=== PATIENT | male | born 1940 | race Caucasian/White ===

== ENCOUNTER → 2019-08-14 | Outpatient (CLI) | payer MEDICARE ==
[~2019-08-14] MED LIST: ASPIRIN81 M1; CALCIUM600 M2; FLONASE ALLERG9.9 ML NAS; GARLIC1 EACH PO; MULTIVITAMIN1 CTB; OMEGA-3 FISH1200 M1; PREDNISONE10 MG PO; ROBITUSSIN DM 105 ML PO; ROBITUSSIN-AC 160 ML PO; VIBRAMYCIN100 MG PO; ZITHROMAX250 MG PO
[2019-08-14 10:23] LABS: BASO % 0.3 % (0.0-1.0); EOS # 0.3 10*3/uL (0.0-0.4); EOS % 4.3 % (1.0-4.0); HEMATOCRIT 44.9 % (42.0-52.0); HEMOGLOBIN 14.8 g/dl (14.0-18.0); LYMPH # 2.1 10*3/uL (1.3-4.4); LYMPH % 31.4 % (27.0-41.0); MEAN CELL VOLUME 90.9 fl (80.0-94.0); MEAN PLATELET VOLUME 10.6 fl (9.6-12.3); MONO # 0.6 10*3/uL (0.1-1.0); MONO % 9.4 % (3.0-9.0); NEUT # 3.7 10*3/uL (2.3-7.9); NEUT % 54.5 % (47.0-73.0); PLATELET COUNT AUTOMATED 173 10*3/uL (130-400); RED BLOOD COUNT 4.94 10*6/uL (4.50-5.90); RED CELL DISTRI WIDTH 13.5 % (0-14.5); WHITE BLOOD COUNT 6.7 10*3/uL (4.8-10.8)
[2019-08-14 11:00] LABS: ALBUMIN 3.7 gm/dl (3.1-4.5); ALKALINE PHOSPHATASE 69 U/L (45-117); BILIRUBIN, DIRECT 0.1 mg/dL (0.0-0.2); BUN 31 mg/dl (7-24); CHLORIDE 107 mmol/L (98-107); CHOLESTEROL 207 mg/dL (<200); CREATININE 1.35 mg/dL (0.70-1.30); POTASSIUM 4.2 mmol/L (3.5-5.1); SGOT/AST 19 IU/L (3-35); SGPT/ALT 19 U/L (12-78); SODIUM 141 mmol/L (136-145); THYROXINE (T4) TOTAL 11.4 ug/dl (4.5-12.1); TRIGLYCERIDES 67 mg/dl (<150); VLDL CHOLESTEROL 13 mg/dL (6-40)
[2019-08-14 11:06] LABS: HDL CHOLESTEROL 60 mg/dl (40-60); LDL CHOLESTEROL 134 mg/dL (9-159)
== END | disposition home or self-care (01) ==
LOC: LAB 09:53
PROVIDERS: Family Medicine
DX: Z12.5 Encounter for screening for malignant neoplasm of prostate (principal); R35.1 Nocturia; I95.9 Hypotension, unspecified; I10 Essential (primary) hypertension

== ENCOUNTER → 2019-08-15 | Outpatient (CLI) | payer MEDICARE | END | disposition home or self-care (01) | LOC: CARD 13:40 | DX: I35.1 Nonrheumatic aortic (valve) insufficiency (principal); I51.7 Cardiomegaly ==

== ENCOUNTER → 2020-03-26 | Outpatient (CLI) | payer MEDICARE ==
[2020-03-26 15:25] LABS: CREATININE 1.46 mg/dL (0.70-1.30); POTASSIUM 4.8 mmol/L (3.5-5.1)
== END | disposition home or self-care (01) ==
LOC: LAB 13:55
PROVIDERS: Family Medicine
DX: R35.0 Frequency of micturition (principal)

== ENCOUNTER → 2020-06-06 | Outpatient (CLI) | payer MEDICARE ==
[2020-06-06 13:19] LABS: BASO % 0.4 % (0.0-1.0); EOS # 0.3 10*3/uL (0.0-0.4); EOS % 3.9 % (1.0-4.0); HEMATOCRIT 44.1 % (42.0-52.0); LYMPH # 1.7 10*3/uL (1.3-4.4); LYMPH % 23.9 % (27.0-41.0); MEAN CELL VOLUME 89.6 fl (80.0-94.0); MEAN CORPUSCULAR HGB 28.5 pg (27.0-31.0); MEAN CORPUSCULAR HGB CONC 31.7 g/dl (33.0-37.0); MEAN PLATELET VOLUME 10.1 fl (9.6-12.3); MONO # 0.8 10*3/uL (0.1-1.0); MONO % 10.5 % (3.0-9.0); NEUT # 4.3 10*3/uL (2.3-7.9); PLATELET COUNT AUTOMATED 200 10*3/uL (130-400); RED BLOOD COUNT 4.92 10*6/uL (4.50-5.90); RED CELL DISTRI WIDTH 13.2 % (0-14.5); WHITE BLOOD COUNT 7.1 10*3/uL (4.8-10.8)
[2020-06-06 13:52] LABS: ALBUMIN 3.4 gm/dl (3.1-4.5); BILIRUBIN, DIRECT 0.2 mg/dL (0.0-0.2); CREATININE 1.55 mg/dL (0.70-1.30); POTASSIUM 4.3 mmol/L (3.5-5.1); THYROXINE (T4) TOTAL 11.1 ug/dl (4.5-12.1); TOTAL PROTEIN 7.4 gm/dL (6.4-8.2)
[2020-06-06 14:00] LABS: THYROID STIM HORMONE (HS) 2.72 uIU/ml (0.358-4.75)
== END | disposition home or self-care (01) ==
LOC: LAB 12:47
PROVIDERS: Family Medicine
DX: N39.9 Disorder of urinary system, unspecified (principal); R53.83 Other fatigue

== ENCOUNTER 2020-07-14 22:42 | Inpatient (IN) | payer MEDICARE ==
[~2020-07-14] VITALS: Ht 180.3 cm; Wt 89.5 kg
[~2020-07-14 22:42] MED LIST changes: +VALTREX1000 MG PO
[2020-07-14 22:46] VITALS: BP 149/71
[2020-07-14] MEDS ORDERED: DICLOFENAC SOD75 MG PO (22:47)
[2020-07-14 22:53] VITALS: BP 134/80
[2020-07-14 23:53] LABS: BASO % 0.4 % (0.0-1.0); EOS # 0.1 10*3/uL (0.0-0.4); EOS % 1.6 % (1.0-4.0); HEMATOCRIT 38.1 % (42.0-52.0); LYMPH # 0.7 10*3/uL (1.3-4.4); LYMPH % 14.4 % (27.0-41.0); MEAN CELL VOLUME 87.4 fl (80.0-94.0); MEAN CORPUSCULAR HGB 28.2 pg (27.0-31.0); MEAN CORPUSCULAR HGB CONC 32.3 g/dl (33.0-37.0); MEAN PLATELET VOLUME 9.5 fl (9.6-12.3); MONO # 0.5 10*3/uL (0.1-1.0); MONO % 9.9 % (3.0-9.0); NEUT # 3.8 10*3/uL (2.3-7.9); NEUT % 73.3 % (47.0-73.0); PLATELET COUNT AUTOMATED 159 10*3/uL (130-400); RED BLOOD COUNT 4.36 10*6/uL (4.50-5.90); RED CELL DISTRI WIDTH 13.7 % (0-14.5); WHITE BLOOD COUNT 5.1 10*3/uL (4.8-10.8)
[2020-07-14 23:58] VITALS: BP 147/80
[2020-07-15 00:02] LABS: BILIRUBIN NEGATIVE; BLOOD 2+ (NEGATIVE); CLARITY CLEAR (CLEAR); COLOR YELLOW (YELLOW); GLUCOSE NEGATIVE; KETONE NEGATIVE; LEUKO ESTERASE NEGATIVE (NEGATIVE); NITRITE NEGATIVE (NEGATIVE); SPECIFIC GRAVITY 1.025 (1.005-1.030); UROBILINOGEN 0.2 E.U./dl (0.2-1.0)
[2020-07-15 00:04] LABS: BACTERIA TRACE; FINE GRANULAR CAST 0-2; WBC 0-2 wbc/hpf (0-5)
[2020-07-15 00:08] LABS: ALBUMIN 3.1 gm/dl (3.1-4.5); CREATININE 1.55 mg/dL (0.70-1.30); POTASSIUM 4.3 mmol/L (3.5-5.1); TOTAL PROTEIN 7.3 gm/dL (6.4-8.2)
--- NOTE | 2020-07-15 01:56 | NUR ---
PASS CODE FOR SYLVIE SUGGS
[2020-07-15 03:00] VITALS: BP 151/69
--- NOTE | 2020-07-15 03:00 | NUR ---
Time: 299 A 79 year old MALE admitted to under services of GINA SALAS DO. Pt. arrived via bed from ER. Chief complaint: FALL AT HOME. JAZZY BETANCOURT
--- NOTE | 2020-07-15 03:20 | NUR ---
PT UNSURE OF HOME MEDICATIONS. WILL PASS ON TO AM SHIFT RN THAT THEY WILL NEED TO CALL [facility] FOR MOST RECENT MED LIST.
--- NOTE | 2020-07-15 03:30 | NUR ---
PT REFUSING MEASUREMENTS/PHOTOGRAPHS OF WOUNDS. HAS AN ABRASION TO HIS RIGHT SCALP AND A RASH (SHINGLES) TO THE LEFT ABD/RIBCAGE. THEY ARE SCABBED OVER, NO DRAINAGE NOTED. PT STATES THEY "AREN'T THAT BAD" AND THERE "IS NO NEED TO DO THAT" IN REGARDS TO THE WOUNDS.
--- NOTE | 2020-07-15 06:08 | NUR ---
SPOKE WITH PATIENTS DAUGHTER VIDHYA, STATES HER DAD HAS NOT BEEN HIMSELF THE PAST COUPLE OF MONTHS AND SEEMS TO BE "GOING DOWN HILL". SHE SAID HE APPEARS DAZED A LOT OF THE TIME AND SHES UNSURE OF WHAT IS GOING ON. PT HAS A COUGH, HAD A FEVER IN ER AND THE DAUGHTER STATES HE WAS C/O NAUSEA YESTERDAY. I ASKED IF HE HAS BEEN AROUND ANY POSITIVE COVID CASES AND SHE SAID "SHE DOESN'T BELIEVE SO". SHE ALSO MENTIONED AN INCREASE IN URINATION WHICH IS UNUSUAL FOR HIM. URINE IS A LITTLE MALODOROUS BUT DID NOT REFLEX TO CULTURE IN ER.
--- NOTE | 2020-07-15 07:00 | NUR ---
ARRIVED 0N SHIFT, REPORT RECEIVED FROM OFFGOING NURSE, ASSUMED CARE OF PATIENT.
--- NOTE | 2020-07-15 07:02 | NUR ---
DAUGHTER VIDHYA CALLED IN TO TELL ME AFTER TALKING TO HER NROTHER, SHE THINKS HER DAD MAY HAVE HAD A HEAT STROKE. SHE STATES HE "WAS OUTSIDE ALL DAY YESTERAY, WITH LITTLE TO DRINK, AND BECAME CONFUSED AND UNLIKE HIMSELF WHEN HE CAME INSIDE". WILL RELAY TO AM NURSE.
--- NOTE | 2020-07-15 07:30 | NUR ---
INTRODUCED SELF TO PATIENT, BED IN LOW POSITION, WHEEL LOCKS ENGAGED, SIDE RAILS UP X 2 FOR TURNING AND REPOSITIONING, BED ALARM ON, CALL LIGHT WITHIN REACH. NO NEEDS VOICED AT THIS TIME, WHITE BOARD UPDATED.
[2020-07-15 08:00] VITALS: BP 147/73
--- NOTE | 2020-07-15 08:19 | NUR ---
Shift chart check completed.
--- NOTE | 2020-07-15 08:32 | NUR ---
PHYSICAL THERAPY Screen and PT orders received, will follow. Thank you. Gama Pitts SPT Fatou Mcknight PT
--- NOTE | 2020-07-15 09:05 | NUR ---
OT NOTE Occupational therapy order received and chart reviewed. Attempted to see patient this AM however she was eating breakfast and declined an OT evaluation at this time. Will check back later this AM for completion of an OT evaluation. Thank you. Sarah Nagy, OTR/L
--- NOTE | 2020-07-15 09:09 | NUR ---
OT NOTE Nursing screen and occupational therapy order received. Will follow up with patient for completion of an OT evaluation. Thank you. Sarah Nagy, OTR/L
[2020-07-15] MEDS ORDERED: PRESERVISION A1 EAC1 PO (10:12)
[2020-07-15 12:00] VITALS: BP 116/52
--- NOTE | 2020-07-15 13:30 | NUR ---
Occupational Therapy evaluation completed on four with full evaluation to follow. Recommend occupational therapy per plan of care and SNF upon discharge. Thank you for this referral. Sarah Nagy OTR/L
--- NOTE | 2020-07-15 14:26 | NUR ---
PHYSICAL THERAPY Physical Therapy evaluation completed on 4th floor with full evaluation to follow. Recommend physical therapy per plan of care and SNF pending pt progress upon discharge. Thank you for this referral. Gama Pitts SPT Fatou Mcknight PT
--- NOTE | 2020-07-15 15:21 | NUR ---
PATIENT C/O LEFT HIP PAIN RATES 7/10 ACHING, MEDICATED WITH NORCO ORDERED PRN FOR PAIN.WHITE BOARD UPDATED.
[2020-07-15 16:00] VITALS: BP 150/67
[2020-07-15 20:00] VITALS: BP 129/69
--- NOTE | 2020-07-15 23:52 | NUR ---
24 HOUR CHART CHECK COMPLETE.
[2020-07-16] VITALS: BP 163/83
--- NOTE | 2020-07-16 01:11 | NUR ---
NORCO ADMINISTERED FOR PT C/O LEFT HIP PAIN RATED AN 8/10. WILL MONITOR AND REASSESS.
--- NOTE | 2020-07-16 02:10 | NUR ---
PT ASLEEP AT THIS TIME. NO S/S OF DISTRESS NOTED.
[2020-07-16 06:42] LABS: BASO % 0.2 % (0.0-1.0); EOS % 0.6 % (1.0-4.0); HEMATOCRIT 35.2 % (42.0-52.0); LYMPH # 0.8 10*3/uL (1.3-4.4); LYMPH % 14.8 % (27.0-41.0); MEAN CELL VOLUME 88.9 fl (80.0-94.0); MEAN CORPUSCULAR HGB 28.3 pg (27.0-31.0); MEAN CORPUSCULAR HGB CONC 31.8 g/dl (33.0-37.0); MEAN PLATELET VOLUME 10.3 fl (9.6-12.3); MONO # 0.5 10*3/uL (0.1-1.0); MONO % 9.6 % (3.0-9.0); NEUT # 3.9 10*3/uL (2.3-7.9); NEUT % 74.4 % (47.0-73.0); PLATELET COUNT AUTOMATED 118 10*3/uL (130-400); RED BLOOD COUNT 3.96 10*6/uL (4.50-5.90); RED CELL DISTRI WIDTH 13.9 % (0-14.5); WHITE BLOOD COUNT 5.2 10*3/uL (4.8-10.8)
[2020-07-16 07:08] LABS: ALBUMIN 2.6 gm/dl (3.1-4.5); ALKALINE PHOSPHATASE 79 U/L (45-117); BUN 19 mg/dl (7-24); CHLORIDE 104 mmol/L (98-107); CREATININE 1.22 mg/dL (0.70-1.30); POTASSIUM 3.9 mmol/L (3.5-5.1); SGOT/AST 43 IU/L (3-35); SGPT/ALT 42 U/L (12-78); SODIUM 135 mmol/L (136-145); TOTAL PROTEIN 6.5 gm/dL (6.4-8.2)
[2020-07-16 07:33] LABS: VITAMIN D, 25-HYDROXY 67.9 ng/mL (30-100)
[2020-07-16 08:00] VITALS: BP 147/68
--- NOTE | 2020-07-16 08:42 | NUR ---
PATIENT C/O LEFT HIP. RATE 8/10 ON PAIN SCALE. MEDICATED WITH NORCO PER PRN ORDER. WILL CONTINUE TO MONITOR.
--- NOTE | 2020-07-16 09:07 | NUR ---
Patient agreeable to snf placement. [facility] in [place] does have a male bed available. Faxed complete referral, waiting on review/acceptance/covid results. Also requires a 3 night stay.
--- NOTE | 2020-07-16 09:15 | NUR ---
PATIENT RESTING QUIETLY. STATES NORCO EFFECTIVE.
--- NOTE | 2020-07-16 09:45 | NUR ---
PHYSICAL THERAPY Patient seen this am 1;1 for therapy visit and was resting supine in bed upon therapist arrival. Patient identified by name / and reports chronic 6/10 L hip pain, prior to transfering supine to sit EOB with MOD A. Patient tolerated static EOB sit, SBA, x 2-3 minutes without c/o, then completed sit to stand transfer MIN A x 1 with use of wh walker standing support. Patient ambulated 15'x 1 to doorway as transport staff arrived to take patient down for x-ray. Patient demonstrated "step to" greg, with antalgic gait pattern and remained in w/c under hospital staff Supervision. Patient returned to room shortly and continued treatment, transfering sit to stand from low w/c surface, MOD A, ambulating additional 25'x 1, CGA, wh walker to bedside chair, demonstrating slow, cautious gait pattern, with increased fatigue. Patient remained in bedside chair with call light, tray table, telephone and body alarm for safety. Will continue per POC as tolerated, total treatment time 16 minutes. Bob Aaron, COMMERCIAL LITIGATION ATTORNEY
--- NOTE | 2020-07-16 10:30 | NUR ---
OT NOTE Pt was seen this A.M. 1:1 for 20 minute OT session. Upon arrival pt was sitting upright in the w/c just returning from a medical test. Pt identified by name and and had complaints of 5/10 L hip pain. Sit to stand completed from w/c level with Jacob and use of w/w for UE support. Functional mobility completed to the bathroom with CGA and use of w/w. There he transferred on to the standard commode with Jacob. Clothing management completed with modA and toilet hygiene completed with SBA while seated. Pt transferred off standard commode with modA due to low surface. Educated pt on technique for increased I and improved technique, pt presented with fair carry over. He then stood sink side while washing his hands with CGA, throughout while standing without UE support pt had bouts of unsteady stance. Functional mobility completed back to the recliner with CGA and use of w/w. There he was left sitting upright with call light in hand, tray table in place, and body alarm activated for safety. Continue with rec D/C plan to SNF. BRAYAN Castro
[2020-07-16 12:07] VITALS: BP 108/69
[2020-07-16 12:12] VITALS: BP 129/65
[2020-07-16 16:07] VITALS: BP 146/63
[2020-07-16 20:00] VITALS: BP 118/43
--- NOTE | 2020-07-16 21:47 | NUR ---
NORCO ADMINISTERED FOR PT C/O 07/01 LEFT HIP PAIN. WILL MONITOR AND REASSESS.
--- NOTE | 2020-07-16 22:43 | NUR ---
PT RESTING AT THIS TIME. NO S/S OF DISTRESS NOTED.
[2020-07-17] VITALS: BP 121/70
--- NOTE | 2020-07-17 05:50 | NUR ---
NORCO ADMINISTERED FOR PT C/O 07/01 LEFT HIP PAIN. WILL MONITOR AND REASSESS.
[2020-07-17 08:00] VITALS: BP 128/60
--- NOTE | 2020-07-17 08:17 | NUR ---
Patient has been accepted to [facility] in [place], waiting on [place] [facility] and completion of 3 night stay
--- NOTE | 2020-07-17 09:00 | NUR ---
case management visits with patient, he will be discharged to [facility] when discharged, he will be eligible for discharge tomorrow, case mangaement will follow
--- NOTE | 2020-07-17 10:45 | NUR ---
PHYSICAL THERAPY Patient seen this am 1:1 for therapy visit and was in his bathroom with OT butcher's assistant upon therapist arrival. Patient had just finished toileting and transfers sit to stand from low toilet seat surface, MOD A. Patient identified by name / as OT butcher's assistant was still present for observation only. Patient ambulates with use of wh walker, CGA, 40'x 1, needing v/c to improve safe step sequence in tight bathroom spaces. Patient demonstrated decreased stride, slow greg and antalgic gait pattern secondary to c/o of 6-7/10 L hip pain. Patient returned to bedside chair with increased fatigue and remained with call light, tray table, telephone, body alarm for safety. Patient tolerated all treatment without further c/o and will continue per POC as tolerated, total treatment time 14 minutes. Bob Aaron, VP CLIENT SERVICES
--- NOTE | 2020-07-17 10:52 | NUR ---
OT NOTE Pt was laying supine in bed with head elevated agreeable to 27 minute therapy session. Pt was identified by name and date of . Supine to EOB Jacob due to left hip pain which pt scaled a 7/10 for pain. MaxA to jennifer socks secondary to having to use the restroom and left hip pain. Sit-stand Jacob with w/w for UB support. Pt was able to walk to the bathroom at [facility] using w/w with mild fatigue, ModA transferring on and off the toilet due to low rise toilet seat and hip pain. Activity tolerance was challenged by walking from bathroom to door way with w/w, pt was able to tolerate approx 3 minutes before getting fatigued. Pt completed UB exercises 2X10 with towel with moderate resistance in recliner to increase strength for ADL tasks. Pt left in recliner with alarm attached and call light in reach. Continue d/c recommended to SNF. Sarah RUTHERFORD/JACOB Feldman/Ale
[2020-07-17 12:00] VITALS: BP 130/75
--- NOTE | 2020-07-17 12:03 | NUR ---
Nutritional Support Services Note: Appetite is good for meals. He is eating 100% of regular diet. Shingles noted. Will provide pt with a night snack. No other nutrition intervention needed at this time. Will follow as needed. Adriana Strong Rdn Ld
[2020-07-17 16:00] VITALS: BP 132/59
[2020-07-17 20:00] VITALS: BP 123/58
[2020-07-18] VITALS: BP 142/88; BP 173/81
--- NOTE | 2020-07-18 07:05 | NUR ---
Patient accepted to [facility], [place] P[facility] complete, 3 night stay complete. [facility] transportation will be picking patient up today at 1:15 PM, nursing and steward/stewardess club car notified.
--- NOTE | 2020-07-18 07:30 | NUR ---
INTRODUCED SELF TO PATIENT, BED IN LOW POSITION WITH WHEEL LOCKS ENGAGED, SIDE RAILS UP X 2 FOR TURNING AND REPOSITIONING, BED ALARM ON, CALL LIGHT WITHIN REACH, NO NEEDS VOICED AT THIS TIME.
--- NOTE | 2020-07-18 07:38 | NUR ---
Shift chart check completed.
[2020-07-18 08:00] VITALS: BP 141/68
--- NOTE | 2020-07-18 09:20 | NUR ---
OT NOTE Pt was laying supine in bed with head elevated agreeable to 1:1 30 minute OT session. Pt identified by name and date of with complaints of 6/10 left hip pain.Transfer Supine to EOB modA x1 due to LB stiffness. Pt was able to don jeans with CGA, stand balance good-. Pt was educated on use of sock aide and dressing stick to don/doff socks, after demonstrating pt was able to jennifer socks with sock aide at SBA. Pt completed UB exercises with theraband 2X10 at moderate resistance.Sit-stand Jacob due to hip pain. Functional mobility EOB to recliner with w/w at CGA. Pt was left in recliner with alarm on and call light in reach. Continue d/c recommended to SNF. KRISH Borges/JACOB Feldman/Ale
[2020-07-18 12:00] VITALS: BP 135/66
--- NOTE | 2020-07-18 12:56 | NUR ---
CALL PLACED TO KENIA CABRERA, NURSE TO NURSE REPORT GIVEN TO JAYLIN KNIGHT.
--- NOTE | 2020-07-18 13:30 | NUR ---
Discharge instructions reviewed with patient/family. Patient receptive and verbalizes understanding. Follow-up care arranged. Written instructions given to patient/family, IV REMOVED, NON MONITORED, TAKEN VIA W/C BY PA, TRANSPORTED BY KENIA AMATO. HANH DIGGS
--- NOTE | 2020-07-18 15:17 | NUR ---
OCCUPATIONAL THERAPY CO-SIGN I approve of the Occupational Therapy notes written above. NATALIE YATES, OTR/L
--- NOTE | 2020-07-19 08:51 | NUR ---
PHYSICAL THERAPY CO-SIGN I approve of the Physical Therapy notes written above. ANTWON BOTELLO, PT, DPT
== END 2020-07-18 13:30 | disposition other institution (70) | DRG 884 ==
LOC: ED 22:42 → EDHOLD 07-15 01:57 → 4E 07-15 01:57
PROVIDERS: Internal Medicine; Nurse Practitioner Family; ADMIT Internal Medicine; ATTEND Internal Medicine
DX: R54 Age-related physical debility (principal); N17.0 Acute kidney failure with tubular necrosis; E87.1 Hypo-osmolality and hyponatremia; E44.0 Moderate protein-calorie malnutrition; E86.0 Dehydration; W19.XXXA Unspecified fall, initial encounter; D64.9 Anemia, unspecified; Z20.828 Contact with and (suspected) exposure to other viral communicable diseases; R73.9 Hyperglycemia, unspecified; B02.9 Zoster without complications; S00.01XA Abrasion of scalp, initial encounter; M19.90 Unspecified osteoarthritis, unspecified site; Z81.3 Family history of other psychoactive substance abuse and dependence; Z68.37 Body mass index [BMI] 37.0-37.9, adult; W18.39XA Other fall on same level, initial encounter; Y93.89 Activity, other specified; Y92.098 Other place in other non-institutional residence as the place of occurrence of the external cause; Z82.49 Family history of ischemic heart disease and other diseases of the circulatory system; Y99.8 Other external cause status

== ENCOUNTER → 2020-09-23 | Outpatient (CLI) | payer MEDICARE ==
[~2020-09-23] MED LIST changes: +CEFDINIR300 MG PO; +DICLOFENAC SOD75 MG PO; +GOOD SENSE ASP325 MG PO; +LEVOFLOXACIN500 MG PO; +PRESERVISION A1 EAC1 PO; +TRAMADOL HCL50 MG PO
[2020-09-23 12:54] LABS: CREATININE 1.54 mg/dL (0.70-1.30); POTASSIUM 4.8 mmol/L (3.5-5.1)
== END | disposition home or self-care (01) ==
LOC: LAB 11:56
PROVIDERS: ATTEND Family Medicine
DX: N28.9 Disorder of kidney and ureter, unspecified (principal)

== ENCOUNTER → 2020-10-03 | Outpatient (CLI) | payer MEDICARE ==
[2020-10-03 10:13] LABS: BASO % 0.4 % (0.0-1.0); EOS # 0.5 10*3/uL (0.0-0.4); EOS % 6.8 % (1.0-4.0); HEMATOCRIT 40.8 % (42.0-52.0); LYMPH # 1.7 10*3/uL (1.3-4.4); LYMPH % 22.5 % (27.0-41.0); MEAN CELL VOLUME 88.9 fl (80.0-94.0); MEAN CORPUSCULAR HGB 27.7 pg (27.0-31.0); MEAN CORPUSCULAR HGB CONC 31.1 g/dl (33.0-37.0); MONO # 0.7 10*3/uL (0.1-1.0); MONO % 9.3 % (3.0-9.0); NEUT # 4.7 10*3/uL (2.3-7.9); NEUT % 60.6 % (47.0-73.0); PLATELET COUNT AUTOMATED 231 10*3/uL (130-400); RED BLOOD COUNT 4.59 10*6/uL (4.50-5.90); RED CELL DISTRI WIDTH 14.5 % (0-14.5); WHITE BLOOD COUNT 7.7 10*3/uL (4.8-10.8)
[2020-10-03 10:24] LABS: BILIRUBIN Negative (Negative); BLOOD Negative (Negative); CLARITY Clear (Clear); COLOR Yellow (Yellow); GLUCOSE Negative (Negative); KETONE Negative (Negative); LEUKO ESTERASE Negative (Negative); NITRITE Negative (Negative); PH 5.5 (4.5-8.0); SPECIFIC GRAVITY 1.025 (1.001-1.030); UROBILINOGEN 0.2 E.U./dl (0.0-1.0)
[2020-10-03 10:42] LABS: ALBUMIN 3.4 gm/dl (3.1-4.5); ALKALINE PHOSPHATASE 102 U/L (45-117); BUN 36 mg/dl (7-24); CHLORIDE 107 mmol/L (98-107); CREATININE 1.31 mg/dL (0.70-1.30); POTASSIUM 4.2 mmol/L (3.5-5.1); SGOT/AST 18 IU/L (3-35); SGPT/ALT 19 U/L (12-78); SODIUM 140 mmol/L (136-145); TOTAL PROTEIN 7.7 gm/dL (6.4-8.2)
[2020-10-03 11:19] LABS: ACT PARTIAL THROMBO TIME 29.6 SECONDS (20.0-32.1)
[2020-10-03 11:54] LABS: BACTERIA 1+; EPITHELIAL CELLS 0-2
[2020-10-03 11:55] LABS: MUCOUS 2+
== END | disposition home or self-care (01) ==
LOC: LAB 09:29
PROVIDERS: ATTEND Orthopaedic Surgery
DX: Z01.818 Encounter for other preprocedural examination (principal); I51.7 Cardiomegaly; D68.8 Other specified coagulation defects; M19.90 Unspecified osteoarthritis, unspecified site; Z79.899 Other long term (current) drug therapy

== ENCOUNTER → 2020-10-21 | Outpatient (CLI) | payer MEDICARE ==
--- NOTE | 2020-10-21 10:23 | NUR ---
INFORMED CONSENT SIGNED FOR LEXISCAN STRESS TEST WITH DR. GARCIA. RESTING EKG BIGEMINY, HR 80 BP 122/64. PULSE OX 97% AND LUNGS CLEAR. COMPLETED ONE MINUTE OF LEXISCAN PROTOCOL RECEIVING LEXISCAN 0.4MG OVER [address] CHANGES NOTED. FREQUENT PVC'S AND COUPLETS NOTED. PT HAD NO C/O. LAST RECOVERY HR 98, BP 124/74. WAITING NUCLEAR SCANNING IN STABLE CONDITION.
== END | disposition home or self-care (01) ==
LOC: CARD 00:09
PROVIDERS: ATTEND Internal Medicine
DX: I49.3 Ventricular premature depolarization (principal); R94.31 Abnormal electrocardiogram [ECG] [EKG]

== ENCOUNTER 2020-10-28 18:06 | Inpatient (IN) | payer MEDICARE ==
[~2020-10-28] VITALS: Ht 180.3 cm; Wt 85.3 kg
[~2020-10-28 18:06] MED LIST changes: -CEFDINIR300 MG PO; -GOOD SENSE ASP325 MG PO; -LEVOFLOXACIN500 MG PO; -TRAMADOL HCL50 MG PO
[2020-10-28 18:17] VITALS: BP 140/70
--- NOTE | 2020-10-28 18:45 | NUR ---
THE PATIENTS GRAND-DAUGHTER CALLED THE ED AND LEFT HER NAME AND PHONE NUMBER AND STATED THAT SHE IS TO BE CONTACTED WHEN AND IF THE PATIENT IS DISCHARGED. HER NAME IS VIOLETA VU [phone]
--- NOTE | 2020-10-28 18:55 | NUR ---
PATIENT RESTING AT THIS TIME. NO COMPLAINTS AT THIS TIME. CALL LIGHT IN REACH. WILL CONTINUE TO MONITOR PT.
[2020-10-28 18:56] VITALS: BP 133/68
--- NOTE | 2020-10-28 19:30 | NUR ---
PATIENT RESTING AT THIS TIME. NO COMPLAINTS. NO DISTRESS. CALL LIGHT IN REACH. WILL CONTINUE TO MONITOR PT.
[2020-10-28 20:02] LABS: BILIRUBIN Negative (Negative); BLOOD Trace-Lysed (Negative); CLARITY Cloudy (Clear); COLOR Dark Yellow (Yellow); GLUCOSE Negative (Negative); KETONE Trace (Negative); LEUKO ESTERASE 2+ (Negative); NITRITE Negative (Negative); SPECIFIC GRAVITY 1.025 (1.001-1.030)
[2020-10-28 20:17] LABS: BACTERIA 2+; EPITHELIAL CELLS 16-20; WBC TNTC wbc/hpf (0-5)
[2020-10-28 20:22] LABS: BASO % 0.1 % (0.0-1.0); EOS # 0.2 10*3/uL (0.0-0.4); EOS % 1.7 % (1.0-4.0); HEMATOCRIT 29.7 % (42.0-52.0); LYMPH # 0.8 10*3/uL (1.3-4.4); LYMPH % 9.2 % (27.0-41.0); MEAN CELL VOLUME 86.1 fl (80.0-94.0); MEAN CORPUSCULAR HGB 27.2 pg (27.0-31.0); MEAN CORPUSCULAR HGB CONC 31.6 g/dl (33.0-37.0); MEAN PLATELET VOLUME 9.3 fl (9.6-12.3); MONO # 0.7 10*3/uL (0.1-1.0); MONO % 7.9 % (3.0-9.0); NEUT # 6.9 10*3/uL (2.3-7.9); NEUT % 80.2 % (47.0-73.0); PLATELET COUNT AUTOMATED 269 10*3/uL (130-400); RED BLOOD COUNT 3.45 10*6/uL (4.50-5.90); RED CELL DISTRI WIDTH 13.5 % (0-14.5); WHITE BLOOD COUNT 8.6 10*3/uL (4.8-10.8)
[2020-10-28 20:39] LABS: ALBUMIN 2.2 gm/dl (3.1-4.5); ALKALINE PHOSPHATASE 127 U/L (45-117); BUN 24 mg/dl (7-24); CHLORIDE 99 mmol/L (98-107); CREATININE 0.96 mg/dL (0.70-1.30); POTASSIUM 3.8 mmol/L (3.5-5.1); SGOT/AST 101 IU/L (3-35); SGPT/ALT 63 U/L (12-78); SODIUM 131 mmol/L (136-145); TOTAL PROTEIN 6.2 gm/dL (6.4-8.2)
[2020-10-28 20:41] LABS: TROPONIN I < 0.015 ng/ml (<0.045)
--- NOTE | 2020-10-28 21:13 | NUR ---
PATIENT RESTING. NO COMPLAINTS. CALL LIGHT IN REACH. PATIENTS GRAND-DAUGHTER CONTACTED THE ED REQUESTING AN UPDATE.
--- NOTE | 2020-10-28 22:42 | NUR ---
PATIENT RESTING AT THIS TIME. CALL LIGHT IN REACH. NO COMPLAINTS. PATIENT HAS BEEN REPOSITIONED AT TIME. WILL CONTINUE TO MONITOR.
--- NOTE | 2020-10-28 22:45 | NUR ---
I SPOKE TO THE PATIENTS DAUGHTER, VIDHYA HOPSON. SHE STATES THAT SHE WOULD LIKE CONTACTED WITH ANY UPDATES ON HER FATHER. HER PHONE NUMBER IS [phone]
--- NOTE | 2020-10-28 23:25 | NUR ---
PATIENT IS RESTING AT THIS TIME. REPEAT VITAL SIGNS OBTAINED. VITAL SIGNS STABLE. CALL LIGHT IN REACH. PATIENT CARE SIGNED OVER TO FRANCOIS GRAY. PATIENT WILL CONTINUE TO BE MONITORED.
[2020-10-28 23:34] VITALS: BP 160/74
--- NOTE | 2020-10-28 23:35 | NUR ---
NURSE TO NURSE REPORT GIVEN TO THIS RN
--- NOTE | 2020-10-29 00:33 | NUR ---
PT DENIES ANY OPEN WOUNDS SORES OR CUTS AT THIS TIME.
--- NOTE | 2020-10-29 00:35 | NUR ---
PT DOES REPORT RECENT HIP SURGERY, SURGICAL WOUND TO LEFT HIP.PT DENIES PHOTO AT THIS TIME.DRESSING INTACT.
[2020-10-29 00:38] VITALS: BP 150/75
--- NOTE | 2020-10-29 00:44 | NUR ---
INUFISION OF ROCEPHIN COMPLETED.INFUSION OF ZITHROMAX INITIATED.
[2020-10-29 02:10] VITALS: BP 158/76
--- NOTE | 2020-10-29 02:10 | NUR ---
A 80, admitted to 4E, under the services of WU Roman DO with a diagnosis of PUI, DIABETIC ENCEPHALOPATHY, PNEUMONIA. Chief complaint is CHANGE IN MENTAL STATUS. Patient arrived via stretcher from ER. Monitor applied. Initial assessment completed. Vital signs taken and recorded. WU ROMAN DO notified of admission to the unit. Orders received. See assessment for past medical history, medications and allergies. Patient and/or family oriented to unit. Clothing/patient valuable form completed. JANIS HARRY
[2020-10-29] MEDS ORDERED: CEFDINIR300 MG PO (05:19)
[2020-10-29] MEDS ORDERED: TRAMADOL HCL50 MG PO (05:20)
[2020-10-29] MEDS ORDERED: GOOD SENSE ASP325 MG PO (05:20)
[2020-10-29 08:00] VITALS: BP 143/73
[2020-10-29 12:00] VITALS: BP 154/80
[2020-10-29 16:00] VITALS: BP 159/79
[2020-10-29 20:00] VITALS: BP 163/67
--- NOTE | 2020-10-29 20:00 | NUR ---
[facility] AND THAT PATIENT WENT RIGHT BACK TO R.
--- NOTE | 2020-10-29 20:00 | NUR ---
PATIENT RESTING IN BED. CO LEFT HIP PAIN. OFFERED TO GET THE PATIENT SOMETHING FOR PAIN AND HE DECLINED STATES HE DOESN'T WANT TO TAKE ANYTHING. PER PATIENT REQUEST ICE PACK GIVEN. DENIES ANY OTHER COMPLAINTS/NEEDS. ASSESSMENT COMPLETE. RESPS EASY AND REGULAR. CALL LIGHT IS WITHIN REACH.
--- NOTE | 2020-10-29 22:14 | NUR ---
PRN TYLENOL GIVEN FOR LEFT HIP PAIN AND LOW GRADE TEMP OF 99.1.
[2020-10-30] VITALS: BP 163/67
--- NOTE | 2020-10-30 00:26 | NUR ---
24 HR chart check completed.
[2020-10-30 05:48] LABS: ALBUMIN 2.3 gm/dl (3.1-4.5); ALKALINE PHOSPHATASE 126 U/L (45-117); BUN 17 mg/dl (7-24); CHLORIDE 102 mmol/L (98-107); CPK 215 U/L (39-308); CREATININE 0.99 mg/dL (0.70-1.30); LDH 264 U/L (87-241); POTASSIUM 3.7 mmol/L (3.5-5.1); SGOT/AST 118 IU/L (3-35); SGPT/ALT 99 U/L (12-78); SODIUM 134 mmol/L (136-145); TOTAL PROTEIN 6.3 gm/dL (6.4-8.2)
[2020-10-30 06:06] LABS: BASO % 0.4 % (0.0-1.0); EOS # 0.3 10*3/uL (0.0-0.4); EOS % 4.9 % (1.0-4.0); HEMATOCRIT 33.3 % (42.0-52.0); LYMPH % 18.1 % (27.0-41.0); MEAN CORPUSCULAR HGB 27.4 pg (27.0-31.0); MEAN CORPUSCULAR HGB CONC 31.8 g/dl (33.0-37.0); MEAN PLATELET VOLUME 9.5 fl (9.6-12.3); MONO # 0.7 10*3/uL (0.1-1.0); MONO % 12.3 % (3.0-9.0); NEUT # 3.5 10*3/uL (2.3-7.9); NEUT % 62.9 % (47.0-73.0); PLATELET COUNT AUTOMATED 308 10*3/uL (130-400); RED BLOOD COUNT 3.87 10*6/uL (4.50-5.90); RED CELL DISTRI WIDTH 13.4 % (0-14.5); WHITE BLOOD COUNT 5.5 10*3/uL (4.8-10.8)
[2020-10-30 08:00] VITALS: BP 121/57
--- NOTE | 2020-10-30 11:31 | NUR ---
Attempted to reach patient via phone with no success. Line is busy. Will try again at a later time.
[2020-10-30 12:00] VITALS: BP 133/88
--- NOTE | 2020-10-30 13:11 | NUR ---
PER AMADOR PT IS FULL WEIGHT BEARING.
[2020-10-30 16:00] VITALS: BP 127/52
--- NOTE | 2020-10-30 19:30 | NUR ---
PT RESTING IN BED. RESPS EASY AND NON LABORED. NO S/S OF DISTRESS NOTED. VSS. WHITE BOARD UPDATED. POC DISCUSSED W PT. A/O W PERIODS OF CONFUSION. PT ASKING WHEN HIS PAPERS WILL BE DONE SO HE CAN LEAVE. REORIENTED PRN. CONTINUES TO REFUSE HEART MONITOR STATING THE DOCTOR SAID HIS HEART WAS FINE. ROOM AIR. LUNGS CLEAR. VOICES NO COMPLAINTS. DSD NOTED TO L HIP-C/D/I. BED ALARM ON. CALL LIGHT WITHIN REACH. ENCOURAGED TO PRONE AND DEEP BREATHE. WILL CONTINUE TO MONITOR.
[2020-10-30 20:00] VITALS: BP 155/80; BP 173/67
--- NOTE | 2020-10-30 23:20 | NUR ---
PT FOUND ATTEMPTING TO LEAVE. EXPLAINED TO PT THAT HE WAS IN THE HOSPITAL AND HIS ISOLATION STATUS. PT STARTED COUGHING INTO THIS NURSES FACE AND STATED "BULLSHIT". PT AGITATED AND YELLING IN HALLWAY.ATTEMPTED REORIENTATION & DE-ESCALATION. EVENTUALLY PT WAS AGREEABLE TO GO BACK INTO HIS ROOM. STATING HE IS CALLING THE [employer]ING [employer]VENTION SERVICES MANAGER BECAUSE WE ARE KEEPING HIM HOSTAGE. ALERT TO SELF AND PLACE. DR FREEMAN CALLED. VSS. STATES HE WILL PUT ORDERS IN.
--- NOTE | 2020-10-30 23:27 | NUR ---
PT MEDICATED PER ORDER. ASSISTED TO RECLINER PER PTS REQUEST. RESPS EASY AND NON LABORED. BODY ALARM INTACT. CALL LIGHT WITHIN REACH. WILL CONTINUE TO MONITOR.
--- NOTE | 2020-10-31 01:01 | NUR ---
PT SLEEPING. RESPS EASY AND NON LABORED. NO S/S OF DISTRESS NOTED. FALL PRECAUTIONS MAINTAINED. CALL LIGHT WITHIN REACH.
[2020-10-31 06:42] LABS: HEMATOCRIT 33.6 % (42.0-52.0); MEAN CELL VOLUME 86.6 fl (80.0-94.0); MEAN CORPUSCULAR HGB 27.6 pg (27.0-31.0); MEAN CORPUSCULAR HGB CONC 31.8 g/dl (33.0-37.0); MEAN PLATELET VOLUME 9.5 fl (9.6-12.3); PLATELET COUNT AUTOMATED 367 10*3/uL (130-400); RED BLOOD COUNT 3.88 10*6/uL (4.50-5.90); RED CELL DISTRI WIDTH 13.6 % (0-14.5); WHITE BLOOD COUNT 5.8 10*3/uL (4.8-10.8)
[2020-10-31 06:47] LABS: ALBUMIN 2.5 gm/dl (3.1-4.5); ALKALINE PHOSPHATASE 127 U/L (45-117); BUN 15 mg/dl (7-24); CHLORIDE 102 mmol/L (98-107); CPK 169 U/L (39-308); CREATININE 1.08 mg/dL (0.70-1.30); LDH 252 U/L (87-241); POTASSIUM 3.7 mmol/L (3.5-5.1); SGOT/AST 76 IU/L (3-35); SGPT/ALT 82 U/L (12-78); SODIUM 134 mmol/L (136-145); TOTAL PROTEIN 6.8 gm/dL (6.4-8.2)
--- NOTE | 2020-10-31 06:58 | NUR ---
DR FREEMAN NOTIFIED OF LACTIC ACID OF 2.2
[2020-10-31 07:13] LABS: BASOPHILS 1 % (0-1); PLATELET SUFFICIENCY NORMAL (NORMAL); TOTAL CELLS COUNTED 100 #CELLS
[2020-10-31 08:00] VITALS: BP 146/90
--- NOTE | 2020-10-31 09:35 | NUR ---
CM called in to speak with patient with no success. CM spoke to , Jaida, regarding discharge planning. Patient states lives at home with his . There are 0 steps in the home. Physician: Dr. Alireza Maynard Pharmacy: [facility] Home health services: [facility] Patient's level of ADLs: MINIMAL ASSIST Patient has working utilities: yes DME: cane, walker Follow-up physician's appointment after d/c: will be made by the hospitalist nurse director upon discharge Does patient want to access PORTAL?: no Discharge plan discussed with his via phone. She states he lives at home with her and their children checking in on them and staying with them if needed. She states he ambulates with a walker and needs minimal assistance with his ADLs. Discussed short term rehab and she declines. Discussed home health care services and she states he currently has [facility] and would like to resume those services upon discharge. She would also like to speak to their daughter, Ana Maria, to see what her thoughts are. When medically stable he will be discharged to home with the resumption of his [facility] services. He will have transportation on discharge. ANTWON ARRIOLA
--- NOTE | 2020-10-31 10:10 | NUR ---
PHYSICAL THERAPY Umm dai noted in chart that pt had recent L THR by due to pt's medical condition and cognitive status spoke w this AM at 10:00 regarding weightbearing and hip precautions, Jaida unable to varify above and could not find folder reg information. Jaida gave permission to contact Ortho MD regading weightbearing status and hip precuations will follow Fatou Mcknight PT
[2020-10-31 12:00] VITALS: BP 123/90
--- NOTE | 2020-10-31 13:50 | NUR ---
PHYSICAL THERAPY Physical Therapy evaluation completed on with full evaluation to follow. Recommend physical therapy per plan of care and SNF upon discharge. Thank you for this referral. Fatou Mcknight PT
--- NOTE | 2020-10-31 14:05 | NUR ---
Occupational Therapy evaluation completed on four with full evaluation to follow. Recommend occupational therapy per plan of care and SNF upon discharge. If refused, home with with 14/06 supervision assist. Thank you for this referral. Sarah Nagy OTR/L
[2020-10-31] MEDS ORDERED: LEVOFLOXACIN500 MG PO (15:02)
--- NOTE | 2020-10-31 15:21 | NUR ---
Received message from daughter, Ana Maria, regarding family wanting patient to return home with resumption of his home health care services. She states her can provide transportation on discharge, .
--- NOTE | 2020-10-31 15:27 | NUR ---
Faxed home health resumption along with clinical and discharge instructions to [facility]
[2020-10-31 16:00] VITALS: BP 142/70
--- NOTE | 2020-10-31 16:10 | NUR ---
Nutritional Support Services Note: Appetite is good for meals. He is eating 70-100% of regular diet. Staff to encourage intake. Will follow as needed. Will provide pt with a night snack. Adriana Davila
--- NOTE | 2020-10-31 17:20 | NUR ---
Discharge instructions reviewed with patient/family. Patient receptive and verbalizes understanding. Follow-up care arranged. Written instructions given to patient/family. KELLEY LIMON
== END 2020-10-31 17:20 | disposition home health service (06) | DRG 177 ==
LOC: ED 18:06 → 4E 10-29 01:01 → EDHOLD 10-29 01:01 → 4E 10-29 02:43
PROVIDERS: Emergency Medicine; Internal Medicine; ADMIT Internal Medicine; ATTEND Internal Medicine
DX: U07.1 COVID-19 (principal); E43 Unspecified severe protein-calorie malnutrition; G93.41 Metabolic encephalopathy; J12.89 Other viral pneumonia; E87.1 Hypo-osmolality and hyponatremia; N30.01 Acute cystitis with hematuria; D64.9 Anemia, unspecified; Z96.649 Presence of unspecified artificial hip joint; R73.9 Hyperglycemia, unspecified; R74.01 Elevation of levels of liver transaminase levels; Z68.26 Body mass index [BMI] 26.0-26.9, adult; Z88.6 Allergy status to analgesic agent; Z88.8 Allergy status to other drugs, medicaments and biological substances; Z79.899 Other long term (current) drug therapy

== ENCOUNTER → 2020-12-20 | Outpatient (CLI) | payer MEDICARE ==
[~2020-12-20] MED LIST changes: +CEFDINIR300 MG PO; +GOOD SENSE ASP325 MG PO; +LEVOFLOXACIN500 MG PO; +TRAMADOL HCL50 MG PO
[2020-12-20 15:56] LABS: BASO % 0.5 % (0.0-1.0); EOS # 0.4 10*3/uL (0.0-0.4); EOS % 5.2 % (1.0-4.0); HEMATOCRIT 37.3 % (42.0-52.0); LYMPH # 1.6 10*3/uL (1.3-4.4); LYMPH % 18.8 % (27.0-41.0); MEAN CELL VOLUME 86.5 fl (80.0-94.0); MEAN CORPUSCULAR HGB 26.7 pg (27.0-31.0); MEAN CORPUSCULAR HGB CONC 30.8 g/dl (33.0-37.0); MEAN PLATELET VOLUME 9.8 fl (9.6-12.3); MONO # 0.9 10*3/uL (0.1-1.0); MONO % 10.8 % (3.0-9.0); NEUT # 5.4 10*3/uL (2.3-7.9); NEUT % 64.3 % (47.0-73.0); PLATELET COUNT AUTOMATED 298 10*3/uL (130-400); RED BLOOD COUNT 4.31 10*6/uL (4.50-5.90); WHITE BLOOD COUNT 8.4 10*3/uL (4.8-10.8)
[2020-12-20 16:09] LABS: ALBUMIN 3.2 gm/dl (3.1-4.5); ALKALINE PHOSPHATASE 116 U/L (45-117); BILIRUBIN, DIRECT < 0.1 mg/dL (0.0-0.2); BUN 34 mg/dl (7-24); CHLORIDE 105 mmol/L (98-107); CREATININE 1.21 mg/dL (0.70-1.30); POTASSIUM 4.3 mmol/L (3.5-5.1); SGOT/AST 12 IU/L (3-35); SGPT/ALT 15 U/L (12-78); SODIUM 139 mmol/L (136-145); TOTAL PROTEIN 7.6 gm/dL (6.4-8.2)
== END | disposition home or self-care (01) ==
LOC: LAB 15:16
PROVIDERS: ATTEND Family Medicine
DX: Z01.812 Encounter for preprocedural laboratory examination (principal); Z79.899 Other long term (current) drug therapy

== ENCOUNTER 2021-05-06 15:55 | Inpatient (IN) | payer MEDICARE ==
[~2021-05-06] VITALS: Ht 180.3 cm; Wt 92.3 kg
[2021-05-06 16:03] VITALS: BP 156/77
[2021-05-06 16:47] LABS: BASO % 0.3 % (0.0-1.0); EOS # 0.1 10*3/uL (0.0-0.4); EOS % 0.9 % (1.0-4.0); HEMATOCRIT 38.9 % (42.0-52.0); LYMPH # 0.7 10*3/uL (1.3-4.4); LYMPH % 10.8 % (27.0-41.0); MEAN CELL VOLUME 86.4 fl (80.0-94.0); MEAN CORPUSCULAR HGB 27.3 pg (27.0-31.0); MEAN CORPUSCULAR HGB CONC 31.6 g/dl (33.0-37.0); MEAN PLATELET VOLUME 9.2 fl (9.6-12.3); MONO # 0.6 10*3/uL (0.1-1.0); MONO % 9.2 % (3.0-9.0); NEUT # 5.4 10*3/uL (2.3-7.9); NEUT % 78.5 % (47.0-73.0); PLATELET COUNT AUTOMATED 203 10*3/uL (130-400); RED CELL DISTRI WIDTH 15.4 % (0-14.5); WHITE BLOOD COUNT 6.9 10*3/uL (4.8-10.8)
[2021-05-06 17:16] LABS: ALBUMIN 3.3 gm/dl (3.1-4.5); ALKALINE PHOSPHATASE 102 U/L (45-117); BUN 19 mg/dl (7-24); CHLORIDE 100 mmol/L (98-107); CREATININE 1.34 mg/dL (0.70-1.30); LIPASE 586 U/L (73-393); POTASSIUM 3.9 mmol/L (3.5-5.1); SGOT/AST 18 IU/L (3-35); SGPT/ALT 17 U/L (12-78); SODIUM 131 mmol/L (136-145)
[2021-05-06 17:20] LABS: TROPONIN I < 0.015 ng/ml (<0.045)
[2021-05-06 17:50] LABS: BILIRUBIN Negative (Negative); BLOOD Trace-Lysed (Negative); CLARITY Clear (Clear); COLOR Yellow (Yellow); GLUCOSE Negative (Negative); KETONE Negative (Negative); LEUKO ESTERASE Negative (Negative); NITRITE Negative (Negative); PH 5.5 (4.5-8.0); SPECIFIC GRAVITY 1.015 (1.001-1.030); UROBILINOGEN 0.2 E.U./dl (0.0-1.0)
[2021-05-06 18:19] LABS: MUCOUS 1+; RBC 0-2 rbc/hpf (0-2); WBC 0-2 wbc/hpf (0-5); YEAST TRACE
[2021-05-06 20:14] VITALS: BP 153/76
[2021-05-06] MEDS ORDERED: MINERAL OIL 1 ML1 ML (23:34)
[2021-05-06] MEDS ORDERED: GABAPENTIN100 M2 PO (23:35)
[2021-05-07] VITALS (7 sets, daily range): BP systolic 115–160; BP diastolic 67–76
[2021-05-07 06:20] LABS: ALBUMIN 3.2 gm/dl (3.1-4.5); BUN 13 mg/dl (7-24); CHLORIDE 99 mmol/L (98-107); CHOLESTEROL 165 mg/dL (<200); CREATININE 1.25 mg/dL (0.70-1.30); SGOT/AST 20 IU/L (3-35); SGPT/ALT 14 U/L (12-78); SODIUM 130 mmol/L (136-145); TOTAL PROTEIN 6.9 gm/dL (6.4-8.2); TRIGLYCERIDES 79 mg/dl (<150)
[2021-05-07 06:24] LABS: ALKALINE PHOSPHATASE 87 U/L (45-117); FREE T4 1.02 ng/dl (0.76-1.46); LDL CHOLESTEROL 96 mg/dL (9-159)
[2021-05-07 06:28] LABS: BASO % 0.3 % (0.0-1.0); HEMATOCRIT 37.3 % (42.0-52.0); LYMPH # 0.7 10*3/uL (1.3-4.4); LYMPH % 11.6 % (27.0-41.0); MEAN CELL VOLUME 84.2 fl (80.0-94.0); MEAN CORPUSCULAR HGB 27.5 pg (27.0-31.0); MEAN CORPUSCULAR HGB CONC 32.7 g/dl (33.0-37.0); MEAN PLATELET VOLUME 9.1 fl (9.6-12.3); MONO # 0.6 10*3/uL (0.1-1.0); MONO % 9.6 % (3.0-9.0); NEUT # 4.9 10*3/uL (2.3-7.9); PLATELET COUNT AUTOMATED 184 10*3/uL (130-400); RED BLOOD COUNT 4.43 10*6/uL (4.50-5.90); RED CELL DISTRI WIDTH 15.3 % (0-14.5); WHITE BLOOD COUNT 6.3 10*3/uL (4.8-10.8)
[2021-05-07 07:18] LABS: VITAMIN D, 25-HYDROXY 61.8 ng/mL (30-100)
[2021-05-08] VITALS: BP 147/78
[2021-05-08 06:28] LABS: BASO % 0.2 % (0.0-1.0); HEMATOCRIT 41.4 % (42.0-52.0); LYMPH # 0.6 10*3/uL (1.3-4.4); LYMPH % 9.3 % (27.0-41.0); MEAN CELL VOLUME 84.8 fl (80.0-94.0); MEAN CORPUSCULAR HGB 27.9 pg (27.0-31.0); MEAN CORPUSCULAR HGB CONC 32.9 g/dl (33.0-37.0); MEAN PLATELET VOLUME 9.6 fl (9.6-12.3); MONO # 0.4 10*3/uL (0.1-1.0); MONO % 6.4 % (3.0-9.0); NEUT # 5.4 10*3/uL (2.3-7.9); NEUT % 83.9 % (47.0-73.0); PLATELET COUNT AUTOMATED 186 10*3/uL (130-400); RED BLOOD COUNT 4.88 10*6/uL (4.50-5.90); RED CELL DISTRI WIDTH 15.4 % (0-14.5); WHITE BLOOD COUNT 6.4 10*3/uL (4.8-10.8)
[2021-05-08 06:32] LABS: BUN 16 mg/dl (7-24); CHLORIDE 99 mmol/L (98-107); CREATININE 1.09 mg/dL (0.70-1.30); POTASSIUM 3.9 mmol/L (3.5-5.1); SODIUM 132 mmol/L (136-145)
[2021-05-08 08:00] VITALS: BP 134/74
[2021-05-08 12:00] VITALS: BP 145/85
[2021-05-08 16:00] VITALS: BP 142/79
[2021-05-08 20:00] VITALS: BP 120/67
[2021-05-09] VITALS: BP 128/87
[2021-05-09 06:12] LABS: BUN 20 mg/dl (7-24); CHLORIDE 101 mmol/L (98-107); CREATININE 0.97 mg/dL (0.70-1.30); SODIUM 135 mmol/L (136-145)
[2021-05-09 08:00] VITALS: BP 116/65
[2021-05-09] MEDS ORDERED: AVPAK AZITHROM250 M1 PO (11:50)
[2021-05-09] MEDS ORDERED: OMNICEF300 MG PO (11:50)
== END 2021-05-09 12:50 | disposition home or self-care (01) | DRG 193 ==
LOC: ED 15:55 → 5E 18:51 → EDHOLD 18:51 → 5E 19:39
PROVIDERS: Emergency Medicine; Internal Medicine; ADMIT Internal Medicine; ATTEND Internal Medicine
PROC: BD1BYZZ Fluoroscopy of Mouth/Oropharynx using Other Contrast (ICD-10-PCS; principal; 2021-05-08)
DX: J18.9 Pneumonia, unspecified organism (principal); G93.41 Metabolic encephalopathy; N17.0 Acute kidney failure with tubular necrosis; E87.1 Hypo-osmolality and hyponatremia; G62.9 Polyneuropathy, unspecified; E86.0 Dehydration; R26.81 Unsteadiness on feet; D50.9 Iron deficiency anemia, unspecified; R73.9 Hyperglycemia, unspecified; R74.8 Abnormal levels of other serum enzymes; R00.0 Tachycardia, unspecified; M89.49 Other hypertrophic osteoarthropathy, multiple sites; Z96.649 Presence of unspecified artificial hip joint; E78.2 Mixed hyperlipidemia; G89.29 Other chronic pain; Z82.49 Family history of ischemic heart disease and other diseases of the circulatory system; Z81.3 Family history of other psychoactive substance abuse and dependence; Z79.899 Other long term (current) drug therapy

== ENCOUNTER 2021-05-13 14:54 | Emergency (ER) | payer MEDICARE ==
[~2021-05-13] VITALS: Ht 180.3 cm; Wt 86.2 kg
[~2021-05-13 14:54] MED LIST changes: +AVPAK AZITHROM250 M1 PO; +GABAPENTIN100 M2 PO; +MINERAL OIL 1 ML1 ML; +OMNICEF300 MG PO
[2021-05-13 15:57] LABS: BASO % 0.2 % (0.0-1.0); EOS # 0.2 10*3/uL (0.0-0.4); EOS % 1.2 % (1.0-4.0); HEMATOCRIT 36.2 % (42.0-52.0); LYMPH # 1.4 10*3/uL (1.3-4.4); LYMPH % 11.3 % (27.0-41.0); MEAN CORPUSCULAR HGB 27.1 pg (27.0-31.0); MEAN CORPUSCULAR HGB CONC 32.3 g/dl (33.0-37.0); MEAN PLATELET VOLUME 9.3 fl (9.6-12.3); MONO # 1.1 10*3/uL (0.1-1.0); MONO % 9.2 % (3.0-9.0); NEUT # 9.6 10*3/uL (2.3-7.9); NEUT % 77.5 % (47.0-73.0); PLATELET COUNT AUTOMATED 265 10*3/uL (130-400); RED BLOOD COUNT 4.31 10*6/uL (4.50-5.90); RED CELL DISTRI WIDTH 15.1 % (0-14.5); WHITE BLOOD COUNT 12.3 10*3/uL (4.8-10.8)
[2021-05-13 16:12] LABS: ALKALINE PHOSPHATASE 84 U/L (45-117); BUN 20 mg/dl (7-24); CHLORIDE 101 mmol/L (98-107); CREATININE 0.96 mg/dL (0.70-1.30); POTASSIUM 3.9 mmol/L (3.5-5.1); SGOT/AST 13 IU/L (3-35); SGPT/ALT 17 U/L (12-78); SODIUM 134 mmol/L (136-145)
[2021-05-13 18:03] VITALS: BP 121/91
== END 2021-05-13 19:51 | disposition home or self-care (01) ==
LOC: ED 14:54
PROVIDERS: Physician Assistant
DX: T50.905A Adverse effect of unspecified drugs, medicaments and biological substances, initial encounter (principal); Z88.8 Allergy status to other drugs, medicaments and biological substances; Z79.899 Other long term (current) drug therapy; Z98.890 Other specified postprocedural states; Y92.89 Other specified places as the place of occurrence of the external cause

== ENCOUNTER → 2021-06-19 | Outpatient (CLI) | payer MEDICARE | END | disposition home or self-care (01) | LOC: CT 10:00 | PROVIDERS: ATTEND Internal Medicine Critical Care Medicine | DX: J18.9 Pneumonia, unspecified organism (principal); I25.10 Atherosclerotic heart disease of native coronary artery without angina pectoris; J84.10 Pulmonary fibrosis, unspecified; R91.8 Other nonspecific abnormal finding of lung field; J98.11 Atelectasis ==

== ENCOUNTER 2022-04-23 14:57 | Inpatient (IN) | payer MEDICARE ==
[~2022-04-23] VITALS: Ht 180.3 cm; Wt 91.8 kg
[~2022-04-23 14:57] MED LIST changes: +BACTRIM 400-801 EACH PO
[2022-04-23 15:23] VITALS: BP 118/89
[2022-04-23 16:11] LABS: BASO % 0.1 % (0.0-1.0); EOS % 0.2 % (1.0-4.0); HEMATOCRIT 48.1 % (42.0-52.0); LYMPH # 0.5 10*3/uL (1.3-4.4); LYMPH % 5.5 % (27.0-41.0); MEAN CELL VOLUME 88.7 fl (80.0-94.0); MEAN CORPUSCULAR HGB CONC 32.6 g/dl (33.0-37.0); MEAN PLATELET VOLUME 9.9 fl (9.6-12.3); MONO # 0.4 10*3/uL (0.1-1.0); MONO % 4.3 % (3.0-9.0); NEUT # 7.5 10*3/uL (2.3-7.9); NEUT % 89.5 % (47.0-73.0); PLATELET COUNT AUTOMATED 199 10*3/uL (130-400); RED BLOOD COUNT 5.42 10*6/uL (4.50-5.90); RED CELL DISTRI WIDTH 15.1 % (0-14.5); WHITE BLOOD COUNT 8.4 10*3/uL (4.8-10.8)
[2022-04-23 16:27] LABS: CREATININE 1.45 mg/dL (0.70-1.30); TOTAL PROTEIN 7.3 gm/dL (6.4-8.2)
[2022-04-23 17:47] LABS: BILIRUBIN Negative (Negative); BLOOD Negative (Negative); CLARITY Clear (Clear); COLOR Yellow (Yellow); GLUCOSE Negative (Negative); KETONE 1+ (Negative); LEUKO ESTERASE Negative (Negative); NITRITE Negative (Negative); SPECIFIC GRAVITY 1.025 (1.001-1.030); UROBILINOGEN 0.2 E.U./dl (0.0-1.0)
[2022-04-23 18:23] LABS: BACTERIA TRACE; HYALINE CAST 0-2; WBC 0-2 wbc/hpf (0-5)
[2022-04-23 20:27] VITALS: BP 139/73
[2022-04-23 21:29] VITALS: BP 126/71
[2022-04-23 22:29] VITALS: BP 129/72
[2022-04-23] MEDS ORDERED: Synthroid,Levo25 MCG PO (22:39)
[2022-04-24 01:14] VITALS: BP 137/80
[2022-04-24 01:25] VITALS: BP 141/66
[2022-04-24 06:29] LABS: BASO % 0.2 % (0.0-1.0); EOS % 0.2 % (1.0-4.0); HEMATOCRIT 41.8 % (42.0-52.0); LYMPH # 0.4 10*3/uL (1.3-4.4); LYMPH % 6.6 % (27.0-41.0); MEAN CORPUSCULAR HGB 29.5 pg (27.0-31.0); MEAN CORPUSCULAR HGB CONC 33.5 g/dl (33.0-37.0); MEAN PLATELET VOLUME 10.1 fl (9.6-12.3); MONO # 0.4 10*3/uL (0.1-1.0); MONO % 5.6 % (3.0-9.0); NEUT # 5.6 10*3/uL (2.3-7.9); NEUT % 87.2 % (47.0-73.0); PLATELET COUNT AUTOMATED 167 10*3/uL (130-400); RED BLOOD COUNT 4.75 10*6/uL (4.50-5.90); WHITE BLOOD COUNT 6.4 10*3/uL (4.8-10.8)
[2022-04-24 07:08] LABS: BUN 20 mg/dl (7-24); CHLORIDE 109 mmol/L (98-107); POTASSIUM 3.8 mmol/L (3.5-5.1); SODIUM 137 mmol/L (136-145)
[2022-04-24 07:18] LABS: ALKALINE PHOSPHATASE 65 U/L (45-117); CHOLESTEROL 141 mg/dL (<200); CREATININE 1.13 mg/dL (0.70-1.30); FREE T4 1.24 ng/dl (0.76-1.46); LDL CHOLESTEROL 82 mg/dL (9-159); SGOT/AST 17 IU/L (3-35); SGPT/ALT 20 U/L (12-78); TOTAL PROTEIN 5.9 gm/dL (6.4-8.2); TRIGLYCERIDES 75 mg/dl (<150)
[2022-04-24 07:52] LABS: VITAMIN D, 25-HYDROXY 58.8 ng/mL (30-100)
[2022-04-24 08:00] VITALS: BP 131/66
[2022-04-24 12:00] VITALS: BP 132/68
[2022-04-24 16:00] VITALS: BP 132/65
[2022-04-24 20:00] VITALS: BP 138/70
[2022-04-25] VITALS: BP 133/70
[2022-04-25 05:20] LABS: BUN 15 mg/dl (7-24); CHLORIDE 106 mmol/L (98-107); CREATININE 1.22 mg/dL (0.70-1.30); POTASSIUM 3.9 mmol/L (3.5-5.1); SODIUM 138 mmol/L (136-145)
[2022-04-25 06:04] LABS: BASO % 0.2 % (0.0-1.0); EOS # 0.1 10*3/uL (0.0-0.4); EOS % 1.1 % (1.0-4.0); HEMATOCRIT 40.5 % (42.0-52.0); LYMPH # 1.1 10*3/uL (1.3-4.4); LYMPH % 24.2 % (27.0-41.0); MEAN CELL VOLUME 88.8 fl (80.0-94.0); MEAN CORPUSCULAR HGB 28.7 pg (27.0-31.0); MEAN CORPUSCULAR HGB CONC 32.3 g/dl (33.0-37.0); MEAN PLATELET VOLUME 10.2 fl (9.6-12.3); MONO # 0.6 10*3/uL (0.1-1.0); NEUT # 2.7 10*3/uL (2.3-7.9); PLATELET COUNT AUTOMATED 139 10*3/uL (130-400); RED BLOOD COUNT 4.56 10*6/uL (4.50-5.90); WHITE BLOOD COUNT 4.4 10*3/uL (4.8-10.8)
[2022-04-25 08:00] VITALS: BP 144/79
[2022-04-25 12:00] VITALS: BP 113/63
[2022-04-25 16:00] VITALS: BP 111/64
[2022-04-25 20:00] VITALS: BP 136/75
[2022-04-26] VITALS: BP 152/88
[2022-04-26 06:01] LABS: BUN 16 mg/dl (7-24); CHLORIDE 105 mmol/L (98-107); CREATININE 1.14 mg/dL (0.70-1.30); SODIUM 138 mmol/L (136-145)
[2022-04-26 06:12] LABS: BASO % 0.2 % (0.0-1.0); EOS # 0.1 10*3/uL (0.0-0.4); HEMATOCRIT 40.5 % (42.0-52.0); LYMPH # 1.5 10*3/uL (1.3-4.4); LYMPH % 34.1 % (27.0-41.0); MEAN CELL VOLUME 87.5 fl (80.0-94.0); MEAN CORPUSCULAR HGB 28.7 pg (27.0-31.0); MEAN CORPUSCULAR HGB CONC 32.8 g/dl (33.0-37.0); MEAN PLATELET VOLUME 10.4 fl (9.6-12.3); MONO # 0.7 10*3/uL (0.1-1.0); MONO % 16.1 % (3.0-9.0); NEUT % 46.1 % (47.0-73.0); PLATELET COUNT AUTOMATED 152 10*3/uL (130-400); RED BLOOD COUNT 4.63 10*6/uL (4.50-5.90); RED CELL DISTRI WIDTH 14.7 % (0-14.5); WHITE BLOOD COUNT 4.3 10*3/uL (4.8-10.8)
[2022-04-26 08:00] VITALS: BP 130/75
[2022-04-26] MEDS ORDERED: LEVOFLOXACIN750 M2 PO (10:45)
== END 2022-04-26 12:34 | disposition home or self-care (01) | DRG 177 ==
LOC: ED 14:57 → 4E 17:50 → EDHOLD 17:50 → 4E 04-24 00:48
PROVIDERS: Emergency Medicine; Internal Medicine; ADMIT Internal Medicine; ATTEND Internal Medicine
DX: J15.6 Pneumonia due to other Gram-negative bacteria (principal); N17.0 Acute kidney failure with tubular necrosis; G93.41 Metabolic encephalopathy; E43 Unspecified severe protein-calorie malnutrition; J98.11 Atelectasis; E86.0 Dehydration; Z20.822 Contact with and (suspected) exposure to COVID-19; E03.9 Hypothyroidism, unspecified; G62.9 Polyneuropathy, unspecified; R73.9 Hyperglycemia, unspecified; E83.41 Hypermagnesemia; E78.2 Mixed hyperlipidemia; M19.90 Unspecified osteoarthritis, unspecified site; Z68.28 Body mass index [BMI] 28.0-28.9, adult; Z79.899 Other long term (current) drug therapy; Z88.8 Allergy status to other drugs, medicaments and biological substances

== ENCOUNTER → 2024-02-02 | Outpatient (CLI) | payer MEDICARE ==
[~2024-02-02] MED LIST changes: +LEVOFLOXACIN750 M2 PO; +Synthroid,Levo25 MCG PO
[2024-02-02 14:05] LABS: BASO % 0.5 % (0.0-1.0); EOS # 0.5 10*3/uL (0.0-0.4); EOS % 6.4 % (1.0-4.0); HEMATOCRIT 42.6 % (42.0-52.0); LYMPH # 1.5 10*3/uL (1.3-4.4); LYMPH % 19.6 % (27.0-41.0); MEAN CELL VOLUME 91.2 fl (80.0-94.0); MEAN CORPUSCULAR HGB CONC 32.9 g/dl (33.0-37.0); MEAN PLATELET VOLUME 10.5 fl (9.6-12.3); MONO # 0.9 10*3/uL (0.1-1.0); MONO % 11.2 % (3.0-9.0); NEUT # 4.8 10*3/uL (2.3-7.9); NEUT % 61.9 % (47.0-73.0); PLATELET COUNT AUTOMATED 181 10*3/uL (130-400); RED BLOOD COUNT 4.67 10*6/uL (4.50-5.90); RED CELL DISTRI WIDTH 13.7 % (0-14.5); WHITE BLOOD COUNT 7.7 10*3/uL (4.8-10.8)
== END | disposition home or self-care (01) ==
LOC: LAB 13:02
PROVIDERS: ATTEND Family Medicine
DX: J84.10 Pulmonary fibrosis, unspecified (principal); R07.9 Chest pain, unspecified

== ENCOUNTER 2024-07-30 06:53 | Emergency (ER) | payer OTHER, MEDICARE ==
[2024-07-30 07:48] VITALS: BP 159/84
[2024-07-30] MEDS ORDERED: Ondansetron Hydrochloride 4 MG TAB SL ONE (08:40)
[2024-07-30] MEDS ORDERED: Acetaminophen/Oxycodone 5 MG/325 MG TABLET PO ONE ×2 (08:40→12:25)
[2024-07-30 11:23] LABS: BASO % 0.3 % (0.0-1.0); EOS # 0.1 10*3/uL (0.0-0.4); EOS % 1.1 % (1.0-4.0); HEMATOCRIT 46.8 % (42.0-52.0); LYMPH % 9.4 % (27.0-41.0); MEAN CELL VOLUME 90.5 fl (80.0-94.0); MEAN CORPUSCULAR HGB 29.2 pg (27.0-31.0); MEAN CORPUSCULAR HGB CONC 32.3 g/dl (33.0-37.0); MEAN PLATELET VOLUME 9.9 fl (9.6-12.3); MONO # 0.8 10*3/uL (0.1-1.0); MONO % 7.2 % (3.0-9.0); NEUT # 8.9 10*3/uL (2.3-7.9); NEUT % 81.6 % (47.0-73.0); PLATELET COUNT AUTOMATED 171 10*3/uL (130-400); RED BLOOD COUNT 5.17 10*6/uL (4.50-5.90); RED CELL DISTRI WIDTH 13.1 % (0-14.5); WHITE BLOOD COUNT 10.8 10*3/uL (4.8-10.8)
[2024-07-30 11:45] LABS: POTASSIUM 4.4 mmol/L (3.4-5.1); TOTAL PROTEIN 7.2 gm/dL (6.0-8.0)
[2024-07-30] MEDS ORDERED: PERCOCET 5-3251 EACH PO (12:08)
== END 2024-07-30 12:14 | disposition home or self-care (01) ==
LOC: ED 06:53
PROVIDERS: Internal Medicine
DX: N13.2 Hydronephrosis with renal and ureteral calculous obstruction (principal); Z88.6 Allergy status to analgesic agent; Z98.890 Other specified postprocedural states

== ENCOUNTER 2024-08-01 17:56 | Inpatient (IN) | payer MEDICARE ==
[~2024-08-01] VITALS: Ht 180.3 cm; Wt 92.1 kg
[~2024-08-01 17:56] MED LIST changes: +PERCOCET 5-3251 EACH PO
[2024-08-01 18:11] VITALS: BP 109/97
[2024-08-01] MEDS ORDERED: CARVEDILOL6.25 MG PO (18:20)
[2024-08-01] MEDS ORDERED: OXYBUTYNIN5 MG PO (18:21)
[2024-08-01] MEDS ORDERED: SODIUM CHLORIDE 0.9% 1,000 ML IV SCH (18:35)
[2024-08-01 18:50] LABS: BASO % 0.2 % (0.0-1.0); EOS # 0.1 10*3/uL (0.0-0.4); EOS % 1.1 % (1.0-4.0); HEMATOCRIT 38.8 % (42.0-52.0); LYMPH # 1.2 10*3/uL (1.3-4.4); MEAN CELL VOLUME 90.2 fl (80.0-94.0); MEAN CORPUSCULAR HGB 29.3 pg (27.0-31.0); MEAN CORPUSCULAR HGB CONC 32.5 g/dl (33.0-37.0); MEAN PLATELET VOLUME 10.3 fl (9.6-12.3); MONO % 10.2 % (3.0-9.0); NEUT % 75.3 % (47.0-73.0); PLATELET COUNT AUTOMATED 144 10*3/uL (130-400); RED CELL DISTRI WIDTH 13.2 % (0-14.5); WHITE BLOOD COUNT 9.3 10*3/uL (4.8-10.8)
[2024-08-01 19:02] LABS: ACT PARTIAL THROMBO TIME 28.1 SECONDS (20.0-32.1)
[2024-08-01 19:46] LABS: BILIRUBIN Negative (Negative); BLOOD 3+ (Negative); CLARITY Cloudy (Clear); COLOR Yellow (Yellow); GLUCOSE Negative (Negative); KETONE Trace (Negative); LEUKO ESTERASE 2+ (Negative); NITRITE Negative (Negative); PH 5.5 (4.5-8.0); SPECIFIC GRAVITY 1.015 (1.001-1.030)
[2024-08-01 19:48] LABS: POTASSIUM 3.8 mmol/L (3.4-5.1); TOTAL PROTEIN 6.5 gm/dL (6.0-8.0)
[2024-08-01 19:54] LABS: BACTERIA 2+; MUCOUS 1+; RBC 31-40 rbc/hpf (0-2); WBC 16-20 wbc/hpf (0-5)
[2024-08-01 20:03] VITALS: BP 107/45
[2024-08-01] MEDS ORDERED: CIPROFLOXACIN 100 ML IV SCH (22:00)
[2024-08-01] MEDS ORDERED: ACETAMINOPHEN 650 MG SUPP R PRN (22:10)
[2024-08-01] MEDS ORDERED: TEMAZEPAM 15 MG CAP PO PRN (22:10)
[2024-08-01] MEDS ORDERED: BISACODYL 5 MG TAB PO PRN (22:10)
[2024-08-01] MEDS ORDERED: ACETAMINOPHEN 325 MG TAB PO PRN (22:10)
[2024-08-01] MEDS ORDERED: Magnesium Hydroxide 30 ML UDC PO PRN (22:10)
[2024-08-01] MEDS ORDERED: BISACODYL 10 MG SUPP R PRN (22:10)
[2024-08-01] MEDS ORDERED: Acetaminophen/Hydrocodone 5 MG/325 MG TABLET PO PRN (22:10)
[2024-08-01] MEDS ORDERED: SODIUM CHLORIDE 0.9% 1,000 ML IV ONE (22:15)
[2024-08-01] MEDS ORDERED: CIPROFLOXACIN 100 ML IV ONE (22:47)
[2024-08-02] MEDS ORDERED: Acetaminophen/Oxycodone 5 MG/325 MG TABLET PO PRN (06:10)
[2024-08-02 06:50] LABS: BASO % 0.2 % (0.0-1.0); EOS # 0.2 10*3/uL (0.0-0.4); EOS % 2.4 % (1.0-4.0); HEMATOCRIT 39.8 % (42.0-52.0); LYMPH # 1.2 10*3/uL (1.3-4.4); LYMPH % 14.5 % (27.0-41.0); MEAN CELL VOLUME 88.8 fl (80.0-94.0); MEAN CORPUSCULAR HGB 29.7 pg (27.0-31.0); MEAN CORPUSCULAR HGB CONC 33.4 g/dl (33.0-37.0); MEAN PLATELET VOLUME 10.4 fl (9.6-12.3); MONO % 11.8 % (3.0-9.0); NEUT # 5.7 10*3/uL (2.3-7.9); NEUT % 70.7 % (47.0-73.0); PLATELET COUNT AUTOMATED 157 10*3/uL (130-400); RED BLOOD COUNT 4.48 10*6/uL (4.50-5.90); RED CELL DISTRI WIDTH 13.3 % (0-14.5); WHITE BLOOD COUNT 8.1 10*3/uL (4.8-10.8)
[2024-08-02 06:51] VITALS: BP 150/79
[2024-08-02 07:33] LABS: FREE T4 1.53 ng/dl (0.89-1.76); POTASSIUM 3.8 mmol/L (3.4-5.1); TOTAL PROTEIN 6.5 gm/dL (6.0-8.0)
[2024-08-02] MEDS ORDERED: SODIUM CHLORIDE 0.9% 1,000 ML IV ONE (08:05)
[2024-08-02] MEDS ORDERED: SODIUM CHLORIDE 0.9% 1,000 ML IV SCH (08:05)
[2024-08-02] MEDS ORDERED: CARVEDILOL 6.25 MG TAB PO SCH (10:00)
[2024-08-02] MEDS ORDERED: Enoxaparin Sodium 40 MG/0.4 ML SYR SC SCH (10:00)
[2024-08-02] MEDS ORDERED: Oxybutynin Chloride 5 MG TAB PO SCH (10:00)
[2024-08-02 16:15] VITALS: BP 138/66
[2024-08-02 16:56] VITALS: BP 158/86
[2024-08-02 20:00] VITALS: BP 115/55
[2024-08-02] MEDS ORDERED: CIPROFLOXACIN 100 ML IV ONE (20:58)
[2024-08-02] MEDS ORDERED: hydrOXYzine pamoate 25 MG CAP PO PRN (21:40)
[2024-08-03] VITALS: BP 118/62
[2024-08-03 06:21] LABS: BASO % 0.5 % (0.0-1.0); EOS # 0.3 10*3/uL (0.0-0.4); EOS % 5.5 % (1.0-4.0); HEMATOCRIT 36.4 % (42.0-52.0); LYMPH # 1.2 10*3/uL (1.3-4.4); LYMPH % 19.5 % (27.0-41.0); MEAN CELL VOLUME 88.8 fl (80.0-94.0); MEAN CORPUSCULAR HGB 29.5 pg (27.0-31.0); MEAN CORPUSCULAR HGB CONC 33.2 g/dl (33.0-37.0); MEAN PLATELET VOLUME 10.2 fl (9.6-12.3); MONO # 0.8 10*3/uL (0.1-1.0); NEUT # 3.6 10*3/uL (2.3-7.9); NEUT % 60.2 % (47.0-73.0); PLATELET COUNT AUTOMATED 156 10*3/uL (130-400); RED CELL DISTRI WIDTH 13.3 % (0-14.5)
[2024-08-03 06:44] LABS: ALKALINE PHOSPHATASE 98 U/L (46-116); BUN 18 mg/dl (9-23); CHLORIDE 106 mmol/L (98-107); POTASSIUM 3.7 mmol/L (3.4-5.1); SGPT/ALT 124 U/L (5-49); TOTAL PROTEIN 5.9 gm/dL (6.0-8.0)
[2024-08-03 08:00] VITALS: BP 142/78
[2024-08-03] MEDS ORDERED: SODIUM CHLORIDE 0.9% 1,000 ML IV SCH (08:10)
[2024-08-03 12:00] VITALS: BP 105/58
[2024-08-03 16:00] VITALS: BP 156/87
[2024-08-03 20:00] VITALS: BP 134/66
[2024-08-04 06:16] LABS: ALKALINE PHOSPHATASE 90 U/L (46-116); BUN 14 mg/dl (9-23); CHLORIDE 108 mmol/L (98-107); POTASSIUM 3.7 mmol/L (3.4-5.1); SGPT/ALT 99 U/L (5-49); TOTAL PROTEIN 5.8 gm/dL (6.0-8.0)
[2024-08-04 06:27] LABS: BASO % 0.5 % (0.0-1.0); EOS # 0.4 10*3/uL (0.0-0.4); EOS % 7.1 % (1.0-4.0); HEMATOCRIT 38.7 % (42.0-52.0); LYMPH # 1.2 10*3/uL (1.3-4.4); LYMPH % 21.2 % (27.0-41.0); MEAN CELL VOLUME 91.1 fl (80.0-94.0); MEAN CORPUSCULAR HGB 29.2 pg (27.0-31.0); MEAN PLATELET VOLUME 10.6 fl (9.6-12.3); MONO # 0.6 10*3/uL (0.1-1.0); MONO % 10.5 % (3.0-9.0); NEUT # 3.4 10*3/uL (2.3-7.9); NEUT % 60.5 % (47.0-73.0); PLATELET COUNT AUTOMATED 178 10*3/uL (130-400); RED BLOOD COUNT 4.25 10*6/uL (4.50-5.90); RED CELL DISTRI WIDTH 13.3 % (0-14.5); WHITE BLOOD COUNT 5.5 10*3/uL (4.8-10.8)
[2024-08-04 08:00] VITALS: BP 158/77
[2024-08-04 12:00] VITALS: BP 152/78
== END 2024-08-04 15:09 | disposition home or self-care (01) | DRG 564 ==
LOC: ED 17:56 → EDHOLD 20:59 → 4E 20:59 → EDHOLD 23:45 → 4E 08-02 15:24
PROVIDERS: Internal Medicine; Nurse Practitioner; Nurse Practitioner Family; Student in an Organized Health Care Education/Training Program; ADMIT Student in an Organized Health Care Education/Training Program; ATTEND Student in an Organized Health Care Education/Training Program
DX: T79.6XXA Traumatic ischemia of muscle, initial encounter (principal); N17.0 Acute kidney failure with tubular necrosis; E87.1 Hypo-osmolality and hyponatremia; N13.6 Pyonephrosis; D64.9 Anemia, unspecified; N18.32 Chronic kidney disease, stage 3b; E03.9 Hypothyroidism, unspecified; G62.9 Polyneuropathy, unspecified; E78.2 Mixed hyperlipidemia; R31.9 Hematuria, unspecified; R73.9 Hyperglycemia, unspecified; R74.01 Elevation of levels of liver transaminase levels; E80.6 Other disorders of bilirubin metabolism; G89.21 Chronic pain due to trauma; J98.6 Disorders of diaphragm; G58.8 Other specified mononeuropathies; M25.522 Pain in left elbow; Z88.8 Allergy status to other drugs, medicaments and biological substances; W18.39XA Other fall on same level, initial encounter; Y93.89 Activity, other specified; Y92.89 Other specified places as the place of occurrence of the external cause; Y99.8 Other external cause status

== ENCOUNTER 2025-01-18 18:03 | Inpatient (IN) | payer MEDICARE ==
[~2025-01-18] VITALS: Ht 180.3 cm; Wt 88.9 kg
[~2025-01-18 18:03] MED LIST changes: +CARVEDILOL6.25 MG PO; +OXYBUTYNIN5 MG PO
[2025-01-18 18:12] VITALS: BP 141/71
[2025-01-18] MEDS ORDERED: SODIUM CHLORIDE 0.9% 1,000 ML IV ONE ×2 (18:40→21:15)
[2025-01-18 18:55] LABS: BASO % 0.5 % (0.0-1.0); EOS # 0.1 10*3/uL (0.0-0.4); EOS % 2.4 % (1.0-4.0); HEMATOCRIT 42.4 % (42.0-52.0); MEAN CELL VOLUME 89.5 fl (80.0-94.0); MEAN CORPUSCULAR HGB 28.7 pg (27.0-31.0); MEAN CORPUSCULAR HGB CONC 32.1 g/dl (33.0-37.0); MEAN PLATELET VOLUME 10.2 fl (9.6-12.3); MONO % 17.3 % (3.0-9.0); NEUT # 3.7 10*3/uL (2.3-7.9); NEUT % 64.2 % (47.0-73.0); PLATELET COUNT AUTOMATED 153 10*3/uL (130-400); RED BLOOD COUNT 4.74 10*6/uL (4.50-5.90); RED CELL DISTRI WIDTH 13.2 % (0-14.5); WHITE BLOOD COUNT 5.8 10*3/uL (4.8-10.8)
[2025-01-18 19:16] LABS: ALKALINE PHOSPHATASE 70 U/L (46-116); BUN 20 mg/dl (9-23); CHLORIDE 99 mmol/L (98-107); SGPT/ALT 8 U/L (5-49); TOTAL PROTEIN 6.5 gm/dL (6.0-8.0)
[2025-01-18 19:32] LABS: BILIRUBIN Negative (Negative); BLOOD Negative (Negative); CLARITY Clear (Clear); COLOR Yellow (Yellow); GLUCOSE Negative (Negative); KETONE Trace (Negative); LEUKO ESTERASE Negative (Negative); NITRITE Negative (Negative)
[2025-01-18 19:49] LABS: HYALINE CAST 0-2; MUCOUS 1+; WBC 0-2 wbc/hpf (0-5)
[2025-01-18] MEDS ORDERED: AIRSUPRA 90-810.7 GM INH (21:29)
[2025-01-18] MEDS ORDERED: Magnesium Hydroxide 30 ML UDC PO PRN (22:05)
[2025-01-18] MEDS ORDERED: Ondansetron Hydrochloride 4 MG/2 ML VIAL IV PRN (22:05)
[2025-01-18] MEDS ORDERED: TEMAZEPAM 15 MG CAP PO PRN (22:05)
[2025-01-18] MEDS ORDERED: ACETAMINOPHEN 325 MG TAB PO PRN (22:05)
[2025-01-18] MEDS ORDERED: BISACODYL 10 MG SUPP R PRN (22:05)
[2025-01-18] MEDS ORDERED: Acetaminophen/Hydrocodone 5 MG/325 MG TABLET PO PRN (22:05)
[2025-01-18] MEDS ORDERED: ACETAMINOPHEN 650 MG SUPP R PRN (22:05)
[2025-01-18] MEDS ORDERED: BISACODYL 5 MG TAB PO PRN (22:05)
[2025-01-18] MEDS ORDERED: Albuterol Sulf/Ipratropium 3 ML VIAL NEB ONE (22:15)
[2025-01-18] MEDS ORDERED: IOHEXOL 300 MG/ML 100 ML VIAL IV ONE (22:25)
[2025-01-18] MEDS ORDERED: Albuterol Sulf/Ipratropium 3 ML VIAL NEB SCH (22:30)
[2025-01-18] MEDS ORDERED: Doxycycline Hyclate 100 MG CAP PO SCH (22:30)
[2025-01-18] MEDS ORDERED: IOHEXOL 300 MG/ML 100 ML VIAL ONE (22:49)
[2025-01-19] VITALS (7 sets, daily range): BP systolic 98–174; BP diastolic 66–80
[2025-01-19 06:19] LABS: HEMATOCRIT 42.2 % (42.0-52.0); MEAN CORPUSCULAR HGB 28.8 pg (27.0-31.0); MEAN PLATELET VOLUME 10.5 fl (9.6-12.3); PLATELET COUNT AUTOMATED 136 10*3/uL (130-400); RED BLOOD COUNT 4.69 10*6/uL (4.50-5.90); RED CELL DISTRI WIDTH 13.5 % (0-14.5); WHITE BLOOD COUNT 4.9 10*3/uL (4.8-10.8)
[2025-01-19 06:26] LABS: MANUAL DIFF REFLEX YES
[2025-01-19 06:43] LABS: ALKALINE PHOSPHATASE 59 U/L (46-116); BUN 16 mg/dl (9-23); CHLORIDE 102 mmol/L (98-107); CHOLESTEROL 148 mg/dL (<200); LDL CHOLESTEROL 94 mg/dL (9-159); POTASSIUM 3.8 mmol/L (3.4-5.1); SGPT/ALT 7 U/L (5-49); TRIGLYCERIDES 63 mg/dl (<150)
[2025-01-19 07:24] LABS: BURR CELLS MODERATE; POLYCHROMASIA SLIGHT; TOTAL CELLS COUNTED 100 #CELLS
[2025-01-19 07:25] LABS: PLATELET SUFFICIENCY NORMAL (NORMAL)
[2025-01-19 07:31] LABS: VITAMIN D, 25-HYDROXY 63.7 ng/mL (30-100)
[2025-01-19] MEDS ORDERED: Oxybutynin Chloride 5 MG TAB PO SCH (10:00)
[2025-01-19] MEDS ORDERED: Enoxaparin Sodium 40 MG/0.4 ML SYR SC SCH (10:00)
[2025-01-19] MEDS ORDERED: CARVEDILOL 6.25 MG TAB PO SCH (10:00)
[2025-01-19] MEDS ORDERED: Oseltamivir Phosphate 75 MG CAP PO SCH (22:00)
[2025-01-20] VITALS: BP 98/57
[2025-01-20 06:25] LABS: BASO % 0.1 % (0.0-1.0); EOS # 0.1 10*3/uL (0.0-0.4); EOS % 0.9 % (1.0-4.0); HEMATOCRIT 42.1 % (42.0-52.0); MEAN CELL VOLUME 89.4 fl (80.0-94.0); MEAN CORPUSCULAR HGB 28.7 pg (27.0-31.0); MEAN CORPUSCULAR HGB CONC 32.1 g/dl (33.0-37.0); MEAN PLATELET VOLUME 10.6 fl (9.6-12.3); MONO # 1.2 10*3/uL (0.1-1.0); MONO % 16.4 % (3.0-9.0); NEUT # 5.1 10*3/uL (2.3-7.9); NEUT % 67.4 % (47.0-73.0); PLATELET COUNT AUTOMATED 124 10*3/uL (130-400); RED BLOOD COUNT 4.71 10*6/uL (4.50-5.90); RED CELL DISTRI WIDTH 13.4 % (0-14.5); WHITE BLOOD COUNT 7.6 10*3/uL (4.8-10.8)
[2025-01-20 06:48] LABS: BUN 22 mg/dl (9-23); CHLORIDE 99 mmol/L (98-107); POTASSIUM 3.8 mmol/L (3.4-5.1)
[2025-01-20 08:00] VITALS: BP 127/78
[2025-01-20] MEDS ORDERED: GUAIFENESIN 600 MG TAB ER PO SCH (09:25)
[2025-01-20] MEDS ORDERED: Oseltamivir Phosphate 30 MG CAP PO SCH (10:00)
[2025-01-20 12:00] VITALS: BP 104/58
[2025-01-20 16:00] VITALS: BP 133/74
[2025-01-20 20:00] VITALS: BP 133/76; BP 158/72; BP 160/92
[2025-01-21] VITALS: BP 149/85
[2025-01-21 06:32] LABS: BUN 17 mg/dl (9-23); CHLORIDE 100 mmol/L (98-107); POTASSIUM 3.9 mmol/L (3.4-5.1)
[2025-01-21 08:00] VITALS: BP 121/78
[2025-01-21] MEDS ORDERED: Oseltamivir Phosphate 75 MG CAP PO SCH (10:00)
[2025-01-21 12:00] VITALS: BP 121/74
[2025-01-21 16:00] VITALS: BP 108/63
[2025-01-21 20:00] VITALS: BP 108/61
[2025-01-22] VITALS: BP 126/67; BP 130/71
[2025-01-22 06:15] LABS: BUN 16 mg/dl (9-23); CHLORIDE 101 mmol/L (98-107); POTASSIUM 4.2 mmol/L (3.4-5.1)
[2025-01-22 08:00] VITALS: BP 136/75; BP 155/71
[2025-01-22 10:35] VITALS: BP 148/70
[2025-01-22] MEDS ORDERED: DOXYCYCLINE MO100 MG PO (11:40)
[2025-01-22] MEDS ORDERED: MUCUS RELIEF E600 MG PO (11:40)
[2025-01-22] MEDS ORDERED: TAMIFLU 75MG CA75 MG PO (11:40)
== END 2025-01-22 14:15 | disposition home or self-care (01) | DRG 193 ==
LOC: ED 18:03 → EDHOLD 21:23 → 4E 21:23 → EDHOLD 01-19 03:36 → 4E 01-19 14:48
PROVIDERS: Internal Medicine; Nurse Practitioner Family; ADMIT Family Medicine; ATTEND Family Medicine
DX: J10.1 Influenza due to other identified influenza virus with other respiratory manifestations (principal); G93.41 Metabolic encephalopathy; J96.01 Acute respiratory failure with hypoxia; E87.1 Hypo-osmolality and hyponatremia; J44.1 Chronic obstructive pulmonary disease with (acute) exacerbation; J44.0 Chronic obstructive pulmonary disease with (acute) lower respiratory infection; J98.4 Other disorders of lung; D64.9 Anemia, unspecified; Z66 Do not resuscitate; R73.9 Hyperglycemia, unspecified; Z20.822 Contact with and (suspected) exposure to COVID-19; G62.9 Polyneuropathy, unspecified; E78.2 Mixed hyperlipidemia; G89.29 Other chronic pain; E03.9 Hypothyroidism, unspecified; N18.31 Chronic kidney disease, stage 3a; J84.10 Pulmonary fibrosis, unspecified; Z88.8 Allergy status to other drugs, medicaments and biological substances; Z82.49 Family history of ischemic heart disease and other diseases of the circulatory system

== ENCOUNTER → 2025-04-10 | Outpatient (CLI) | payer MEDICARE ==
[~2025-04-10] MED LIST changes: +AIRSUPRA 90-810.7 GM INH; +DOXYCYCLINE MO100 MG PO; +MUCUS RELIEF E600 MG PO; +TAMIFLU 75MG CA75 MG PO
== END | disposition home or self-care (01) ==
LOC: CT 09:56
PROVIDERS: ATTEND Internal Medicine Critical Care Medicine
DX: J43.9 Emphysema, unspecified (principal); I25.10 Atherosclerotic heart disease of native coronary artery without angina pectoris; R91.8 Other nonspecific abnormal finding of lung field; J84.113 Idiopathic non-specific interstitial pneumonitis

== ENCOUNTER 2025-09-30 14:46 | Inpatient (IN) | payer MEDICARE ==
[~2025-09-30] VITALS: Ht 180.3 cm; Wt 83.3 kg
[~2025-09-30 14:46] MED LIST changes: +AMLODIPINE BESYL5 MG PO; +ANTACID200 MG PO; +ASPIRIN ADULT L81 M2 PO; +COLACE100 MG PO; +LEXAPRO10 MG PO; +MYLANTA MAXIMU355 M1 PO; +PLAVIX75 M1 PO; +PRILOSEC20 M1 PO; +SENNA-PLUS TAB1 EACH PO
[2025-09-30 15:00] VITALS: BP 76/50
[2025-09-30] MEDS ORDERED: Pantoprazole Sodium 80 MG,IV 1 EA in SYRINGE INFUSION 20 ML IV ONE (15:00)
[2025-09-30] MEDS ORDERED: SODIUM CHLORIDE 0.9% 1,000 ML IV ONE ×4 (15:00→22:48)
[2025-09-30 15:24] LABS: BASO # 0.1 10*3/uL (0.0-0.1); BASO % 0.7 % (0.0-1.0); EOS # 0.4 10*3/uL (0.0-0.4); EOS % 3.7 % (1.0-4.0); MEAN CELL VOLUME 93.2 fl (80.0-94.0); MEAN CORPUSCULAR HGB 28.6 pg (27.0-31.0); MEAN PLATELET VOLUME 9.7 fl (9.6-12.3); MONO # 1.3 10*3/uL (0.1-1.0); MONO % 11.3 % (3.0-9.0); NEUT # 6.3 10*3/uL (2.3-7.9); NEUT % 56.7 % (47.0-73.0); NUCLEATED RED BLOOD CELL 0.0 % (0.0-0.0); NUCLEATED RED BLOOD CELL 0.0 10*3/uL (0.0-0.0); PLATELET COUNT AUTOMATED 279 10*3/uL (130-400); RED CELL DISTRI WIDTH 15.9 % (0-14.5)
[2025-09-30 15:33] LABS: ACT PARTIAL THROMBO TIME 26.1 SECONDS (20.0-32.1)
[2025-09-30 15:42] LABS: BUN 32 mg/dl (9-23); SGPT/ALT 281 U/L (5-49)
[2025-09-30] MEDS ORDERED: SODIUM CHLORIDE 0.9% 2,000 ML IV ONE (15:43)
[2025-09-30 16:04] VITALS: BP 93/57
[2025-09-30] MEDS ORDERED: PROTONIX40 MG PO (16:25)
[2025-09-30] MEDS ORDERED: ASPIRIN81 M1 PO (16:29)
[2025-09-30] MEDS ORDERED: ACETAMINOPHEN 325 MG TAB PO PRN (17:30)
[2025-09-30] MEDS ORDERED: Acetaminophen/Hydrocodone 5 MG/325 MG TABLET PO PRN (17:30)
[2025-09-30] MEDS ORDERED: ACETAMINOPHEN 650 MG SUPP R PRN (17:30)
[2025-09-30] MEDS ORDERED: BISACODYL 10 MG SUPP R PRN (17:30)
[2025-09-30] MEDS ORDERED: Ondansetron Hydrochloride 4 MG/2 ML VIAL IV PRN (17:30)
[2025-09-30] MEDS ORDERED: BISACODYL 5 MG TAB PO PRN (17:30)
[2025-09-30 17:50] VITALS: BP 114/78
[2025-09-30] MEDS ORDERED: ALBUTEROL 8 GM INHALER INH PRN (18:40)
[2025-09-30 20:00] VITALS: BP 129/60
[2025-09-30] MEDS ORDERED: CARVEDILOL 3.125 MG TAB ONE (20:15)
[2025-09-30] MEDS ORDERED: CARVEDILOL 3.125 MG TAB PO SCH (22:00)
[2025-10-01] VITALS (14 sets, daily range): BP systolic 94–107; BP diastolic 41–64
[2025-10-01 06:05] LABS: BUN 27 mg/dl (9-23); SGPT/ALT 236 U/L (5-49)
[2025-10-01 07:00] LABS: VITAMIN D, 25-HYDROXY 68.8 ng/mL (30-100)
[2025-10-01 07:02] LABS: MEAN CELL VOLUME 94.0 fl (80.0-94.0); MEAN CORPUSCULAR HGB 28.9 pg (27.0-31.0); MEAN PLATELET VOLUME 9.5 fl (9.6-12.3); NUCLEATED RED BLOOD CELL 0.0 % (0.0-0.0); NUCLEATED RED BLOOD CELL 0.0 10*3/uL (0.0-0.0); RED CELL DISTRI WIDTH 16.1 % (0-14.5)
[2025-10-01 07:03] LABS: MANUAL DIFF REFLEX YES; PLATELET COUNT AUTOMATED 175 10*3/uL (130-400)
[2025-10-01 07:50] LABS: BASOPHILS 1 % (0-1); PLATELET SUFFICIENCY NORMAL (NORMAL)
[2025-10-01] MEDS ORDERED: SODIUM CHLORIDE 0.9% 500 ML IV SCH (09:50)
[2025-10-01] MEDS ORDERED: ESCITALOPRAM OXALATE 10 MG TAB PO SCH (10:00)
[2025-10-01] MEDS ORDERED: CIPROFLOXACIN 200 ML IV SCH (10:00)
[2025-10-01] MEDS ORDERED: CALCIUM (TUMS) 500MG PO SCH (10:00)
[2025-10-01] MEDS ORDERED: Clopidogrel Hydrogen Sulfate 75 MG TAB PO SCH (10:00)
[2025-10-01] MEDS ORDERED: PANTOPRAZOLE SODIUM IV SCH (10:00)
[2025-10-01] MEDS ORDERED: SODIUM CHLORIDE 0.9% 500 ML IV ONE (10:18)
[2025-10-01] MEDS ORDERED: ESCITALOPRAM OXALATE 20 MG TAB PO ONE (10:24)
[2025-10-01] MEDS ORDERED: CARVEDILOL 3.125 MG TAB ONE (10:24)
[2025-10-01] MEDS ORDERED: CALCIUM (TUMS) 500MG ONE (10:24)
[2025-10-01] MEDS ORDERED: CIPROFLOXACIN 200 ML IV ONE (10:25)
[2025-10-01] MEDS ORDERED: ESCITALOPRAM OXALATE 10 MG TAB ONE (10:42)
[2025-10-01 13:15] LABS: BASO # 0.1 10*3/uL (0.0-0.1); BASO % 0.8 % (0.0-1.0); EOS # 0.4 10*3/uL (0.0-0.4); EOS % 6.5 % (1.0-4.0); MEAN CELL VOLUME 92.1 fl (80.0-94.0); MEAN CORPUSCULAR HGB 30.2 pg (27.0-31.0); MEAN PLATELET VOLUME 9.1 fl (9.6-12.3); MONO # 0.6 10*3/uL (0.1-1.0); MONO % 10.0 % (3.0-9.0); NEUT # 3.5 10*3/uL (2.3-7.9); NEUT % 58.0 % (47.0-73.0); NUCLEATED RED BLOOD CELL 0.0 % (0.0-0.0); NUCLEATED RED BLOOD CELL 0.0 10*3/uL (0.0-0.0); PLATELET COUNT AUTOMATED 171 10*3/uL (130-400); RED CELL DISTRI WIDTH 15.5 % (0-14.5)
[2025-10-02] VITALS: BP 113/55
[2025-10-02 06:05] LABS: BASO # 0.1 10*3/uL (0.0-0.1); BASO % 0.8 % (0.0-1.0); EOS # 0.7 10*3/uL (0.0-0.4); EOS % 10.1 % (1.0-4.0); MEAN CELL VOLUME 90.7 fl (80.0-94.0); MEAN CORPUSCULAR HGB 29.3 pg (27.0-31.0); MEAN PLATELET VOLUME 9.7 fl (9.6-12.3); MONO # 0.8 10*3/uL (0.1-1.0); MONO % 11.3 % (3.0-9.0); NEUT # 3.7 10*3/uL (2.3-7.9); NEUT % 56.0 % (47.0-73.0); NUCLEATED RED BLOOD CELL 0.0 % (0.0-0.0); NUCLEATED RED BLOOD CELL 0.0 10*3/uL (0.0-0.0); PLATELET COUNT AUTOMATED 192 10*3/uL (130-400); RED CELL DISTRI WIDTH 15.9 % (0-14.5)
[2025-10-02 07:48] VITALS: BP 133/59
[2025-10-02 10:07] LABS: HEMOGOLBIN A1C 5.0 % (4.8-5.6)
[2025-10-02 12:00] VITALS: BP 116/57
[2025-10-02 16:00] VITALS: BP 134/60
[2025-10-02 20:00] VITALS: BP 132/66
[2025-10-03] VITALS: BP 127/62
[2025-10-03 06:00] LABS: BASO # 0.0 10*3/uL (0.0-0.1); BASO % 0.7 % (0.0-1.0); EOS # 0.7 10*3/uL (0.0-0.4); EOS % 11.8 % (1.0-4.0); MEAN CELL VOLUME 93.4 fl (80.0-94.0); MEAN CORPUSCULAR HGB 29.2 pg (27.0-31.0); MEAN PLATELET VOLUME 9.9 fl (9.6-12.3); MONO # 0.7 10*3/uL (0.1-1.0); MONO % 12.3 % (3.0-9.0); NEUT # 3.1 10*3/uL (2.3-7.9); NEUT % 50.8 % (47.0-73.0); NUCLEATED RED BLOOD CELL 0.0 % (0.0-0.0); NUCLEATED RED BLOOD CELL 0.0 10*3/uL (0.0-0.0); PLATELET COUNT AUTOMATED 199 10*3/uL (130-400); RED CELL DISTRI WIDTH 15.9 % (0-14.5)
[2025-10-03 08:00] VITALS: BP 129/72
[2025-10-03] MEDS ORDERED: CARAFATE1 G1 PO (10:42)
[2025-10-03] MEDS ORDERED: METRONIDAZOLE500 M1 PO (10:42)
[2025-10-03] MEDS ORDERED: CIPRO500 MG PO (10:42)
== END 2025-10-03 13:05 | DRG 444 ==
LOC: ED 14:46 → 4E 16:20 → EDHOLD 16:20 → 4E 17:19
PROVIDERS: Emergency Medicine; ADMIT Internal Medicine; ATTEND Internal Medicine
PROC: 30233N1 Transfusion of Nonautologous Red Blood Cells into Peripheral Vein, Percutaneous Approach (ICD-10-PCS; principal; 2025-10-01)
DX: K81.0 Acute cholecystitis (principal); E43 Unspecified severe protein-calorie malnutrition; K92.2 Gastrointestinal hemorrhage, unspecified; E87.1 Hypo-osmolality and hyponatremia; E87.20 Acidosis, unspecified; D50.0 Iron deficiency anemia secondary to blood loss (chronic); R74.8 Abnormal levels of other serum enzymes; R73.9 Hyperglycemia, unspecified; E83.51 Hypocalcemia; K21.9 Gastro-esophageal reflux disease without esophagitis; Z66 Do not resuscitate; J45.909 Unspecified asthma, uncomplicated; Z98.890 Other specified postprocedural states; Z86.73 Personal history of transient ischemic attack (TIA), and cerebral infarction without residual deficits; Z95.5 Presence of coronary angioplasty implant and graft; Z88.8 Allergy status to other drugs, medicaments and biological substances; Z79.82 Long term (current) use of aspirin; Z79.899 Other long term (current) drug therapy; Z68.25 Body mass index [BMI] 25.0-25.9, adult; Z87.19 Personal history of other diseases of the digestive system